=== PATIENT | male | born 1935 | race Caucasian/White ===

== ENCOUNTER 2019-06-24 19:20 | Inpatient (IN) | payer OTHER ==
[2019-06-24] MEDS ORDERED: SODIUM CHLORIDE 1,000 ML IV ONE (19:50)
--- NOTE | 2019-06-24 19:55 | PDOC ---
Documentation entered by Gaby Harden SCRIBE, acting as scribe for Margi Packer MD. Margi Packer MD: This documentation has been prepared by the Dereck woodard Aiswarya, SCRIBE, under my direction and personally reviewed by me in its entirety. I confirm that the documentation accurately reflects all work, treatment, procedures, and medical decision making performed by me. History of Present Illness - General Chief Complaint: Lightheaded Stated Complaint: DIZZY/SOB Time Seen by Provider: 06/24/19 19:23 History Source: Patient Exam Limitations: No Limitations - History of Present Illness Initial Comments: 06/24/19 19:53 Assessment and plan: This is an 83-year-old male brought in by EMS for evaluation of 3 days of shortness of breath and difficulty breathing. Patient denies any history of similar symptoms in the past. Patient denies any chest pain nausea vomiting or diarrhea. Patient denies any palpitations however he is noted to be tachycardic to approximately 140 Work-up initiated including CBC, comp, EKG, chest x-ray, BNP, lactic acid EKG shows sinus tachycardia at a rate of 137. There is an old inferior wall SD otherwise no acute ST-T wave changes. Chest x-ray shows no acute pathology. 06/24/19 20:00 The patient is a 83 year old male, with no significant PMH, who presents to the emergency department with 3 days of SOB. The patient endorses associated symptoms of lightheadedness,difficulty breathing and fatigue. Patient notice symptoms after winning a contest 3 days ago.The patient denies having similar symptoms in the past. The patient denies chest pain, shortness of breath, headache and dizziness.Denies fever, chills, nausea, vomit, diarrhea and constipation. PAST MEDICAL HISTORY: no significant history PAST SURGICAL HISTORY: no significant history FAMILY HISTORY: no pertinent history SOCIAL HISTORY: Pt lives with family and is employed. MEDICATIONS: reviewed ALLERGIES: As per nursing notes Adult ROS General: No fevers or chills, no weakness, no weight loss HEENT: No change in vision. No sore throat,. No ear pain CardioVascular:+sob. No chest pain. Respiratory:No cough, or wheezing. Musculoskeletal: No joint or muscle pain or swelling Neurologic:+ lightheadedness. No headache, vertigo or loss of consciousness Psychiatric: nor depression Skin: No rashes or easy bruising Endocrine: no increased thirst or abnormal weight change Allergic: no skin or latex allergy All other systems reviewed and normal Adult Exam: General: Well-nourished well-developed individual, no acute distress HEENT: Throat: +dry mucous memebrane. Normal, tonsils normal, no erythema or exudate Neck: Supple, no meningeal signs, no lymphadenopathy Eyes::Pupils equal reactive and round, extraocular motion intact Chest: Nontender to palpation Cardiac:+tachycardic S1-S2 normal, no murmurs rubs or gallops Respiratory: +tachypnea. Lungs clear to auscultation bilateral Abdomen: Soft, nondistended, normal bowel sounds, nontender to palpation diffusely Extremities: Warm, dry, no cyanosis, clubbing, or edema Skin: No rashes Neuro: Alert and oriented x3, nonfocal exam, grossly intact, normal gait Psych: Normal mood and affect Past History - Past Medical History Allergies/Adverse Reactions: Allergies Allergy/AdvReac Type Severity Reaction Status Date / Time No Known Allergies Allergy Verified 06/24/19 19:30 Home Medications: Ambulatory Orders NK [No Known Home Medication] 06/24/19 COPD: No Other medical history: DENIES - Psycho Social/Smoking Cessation Hx Smoking History: Never smoked Have you smoked in the past 12 months: No Information on smoking cessation initiated: No Hx Alcohol Use: Yes (3 OUNCES OF GIN DAILY) Drug/Substance Use Hx: No *Physical Exam - Vital Signs Last Vital Signs Temp Pulse Resp BP Pulse Ox 138 H 36 H 147/87 96 06/24/19 19:31 06/24/19 19:31 06/24/19 19:31 06/24/19 19:31 ED Treatment Course - LABORATORY CBC & Chemistry Diagram: 06/24/19 19:40 06/24/19 19:40 - RADIOLOGY Radiology Studies Ordered: Category Date Time Status CHEST X-RAY PORTABLE* [RAD] Stat Radiology 06/24/19 19:23 Taken Medical Decision Making - Critical Care Time Total Critical Care Time (minutes): 30 Critical Care Statement: The care of this patient involved high complexity decision making to prevent further life threatening deterioration of the patient 's condition and/or to evaluate & treat vital organ system(s) failure or risk of failure. Discharge - Discharge Information Problems reviewed: Yes Clinical Impression/Diagnosis: Tachycardia, Tachypnea on examination, Elevated troponin level Condition: Stable - Admission Yes - Follow up/Referral - Patient Discharge Instructions - Post Discharge Activity
[2019-06-24 19:57] LABS: BASO % 0.6 % (0-2.0); EOS % 0.5 % (0-4.5); HEMATOCRIT 46.6 % (35.4-49); HEMOGLOBIN 15.5 GM/dl (11.7-16.9); LYMPH % 18.8 % (8-40); MCHC 33.3 g/dl (32.0-35.9); MEAN CELL VOLUME 90.2 fl (80-96); MEAN PLT VOLUME 9.8 fl (7.5-11.1); MONO % 6.1 % (3.8-10.2); PLATELET COUNT 158 K/MM3 (134-434); RBC 5.17 M/mm3 (4.00-5.60); RDW 13.3 % (11.9-15.9); WHITE BLOOD COUNT 8.2 K/mm3 (4.0-10.8)
[2019-06-24 20:06] LABS: ALBUMIN 3.8 g/dl (3.4-5.0); BILIRUBIN,TOTAL 1.3 mg/dl (0.2-1); CALCIUM 9.1 mg/dl (8.5-10); CREATININE 1.4 mg/dl (0.55-1.3); POTASSIUM 4.4 mmol/L (3.5-5.1); TOT PROT 7.5 g/dl (6.4-8.2)
[2019-06-24 22:25] LABS: URIC ACID CRYSTALS 1+ /hpf (NONE SEEN)
[2019-06-24] MEDS ORDERED: HEPARIN NA (PORCINE) 5,000 UNITS/ML 1ML VIAL IVPUSH ONE (22:31)
[2019-06-24] MEDS ORDERED: HEPARIN NA (PORCINE) 5,000 UNITS/ML 1ML VIAL ONE (22:37)
[2019-06-24] MEDS ORDERED: HEPARIN INFUSION - 25,000 UNITS/500 ML INFUS.BAG IVPB ONE (22:37)
[2019-06-24] MEDS ORDERED: HEPARIN NA (PORCINE) 5,000 UNITS/ML 1ML VIAL IVPUSH PRN ×2 (22:41)
[2019-06-24] MEDS: HEPARIN - 25,000 UNIT in SODIUM CHLORIDE 495 ML IV SCH (22:51)
[2019-06-24 23:37] LABS: INR 1.16 (0.82-1.09)
--- NOTE | 2019-06-25 02:17 | CONSULT ---
Consultation: REQUESTING PROVIDER: Dr. Aguilar CONSULT REQUEST: We have been asked to medically evaluate this patient for ICU admission HISTORY OF PRESENT ILLNESS: Patient is an 83 year old male with no significant documented medical history, presents with complaint of shortness of breath. Symptoms ongoing for three days , noted initially after attempting to walk up a hill. Patient endorses he was able to walk same path before without difficulty. Denies any recent travel, or prolonged period of immobilization. Denies any cardiac history. Has never taken any anticoagulants. Patient states last had appointment with primary care physician less than one year ago, and all bloodwork was reportedly normal. Patient admits colonoscopy approx 5 years ago, with reportedly normal result. Denies prior endoscopy. States he takes no home medications. CTA chest done in [place] reveals extensive acute pulmonary embolism withing left and right pulmonary arteries, straddling pulmonary artery bifurcation, with apparent right heart strain. Further acute emboli at upper and lower lobar arteries bilaterally. Upon my encounter, patient is awake, alert , communicative in no apparent distress. Speaks full sentences, denies chest pain, shortness of breath. Denies prior clotting history. PMH: Sciatica PSH: cataract surgery (one year ago) Family history: denies significant cardiac, or oncologic family history Social history: Denies smoking cigarettes. Admits drinking approx 3 oz of gin daily. Denies illicit drug use. He paints watercolors, and is musician (plays guitar). REVIEW OF SYSTEMS: CONSTITUTIONAL: Absent: fever, chills, diaphoresis, generalized weakness, malaise, loss of appetite, weight change HEENT: Absent: rhinorrhea, nasal congestion, throat pain, throat swelling, difficulty swallowing, mouth swelling, ear pain, eye pain, visual changes CARDIOVASCULAR: Absent: chest pain, syncope, palpitations, irregular heart rate, lightheadedness , peripheral edema RESPIRATORY: Admits: shortness of breath, dyspnea with exertion. Absent: cough, orthopnea, wheezing, stridor, hemoptysis GASTROINTESTINAL: Absent: abdominal pain, abdominal distension, nausea, vomiting, diarrhea, constipation, melena, hematochezia GENITOURINARY: Absent: dysuria, frequency, urgency, hesitancy, hematuria, flank pain, genital pain MUSCULOSKELETAL: Absent: myalgia, arthralgia, joint swelling, back pain, neck pain SKIN: Absent: rash, itching, pallor HEMATOLOGIC/IMMUNOLOGIC: Absent: easy bleeding, easy bruising, lymphadenopathy, frequent infections ENDOCRINE: Absent: unexplained weight gain, unexplained weight loss, heat intolerance, cold intolerance NEUROLOGIC: Absent: headache, focal weakness or paresthesias, dizziness, unsteady gait, seizure, mental status changes, bladder or bowel incontinence PSYCHIATRIC: Absent: anxiety, depression, suicidal or homicidal ideation, hallucinations. PHYSICAL EXAMINATION Vital Signs - 24 hr 06/24/19 06/24/19 06/24/19 19:31 19:46 19:54 Temperature 99.8 F H Pulse Rate 138 H 136 H Pulse Rate [ Right] Respiratory 36 H Rate Blood Pressure 147/87 Blood Pressure [Right] O2 Sat by Pulse 96 97 Oximetry (%) 06/24/19 06/24/19 06/25/19 20:02 23:00 01:29 Temperature 97.3 F L Pulse Rate 125 H Pulse Rate [ 139 H 133 H Right] Respiratory 24 H 24 H 19 Rate Blood Pressure 165/116 H Blood Pressure 118/93 129/93 [Right] O2 Sat by Pulse 96 96 98 Oximetry (%) GENERAL: Awake, alert, and fully oriented, in no acute distress. HEAD: Normal with no signs of trauma. EYES: Pupils equal, round and reactive to light, extraocular movements intact, sclera anicteric, conjunctiva clear. No lid lag. EARS, NOSE, THROAT: Oropharynx clear without exudates. Moist mucous membranes. NECK: Normal range of motion, supple without lymphadenopathy. LUNGS: Breath sounds equal, clear to auscultation bilaterally. No wheezes, and no crackles. No accessory muscle use. HEART: Regular rate and rhythm, normal S1 and S2 without murmur, rub or gallop. ABDOMEN: Soft, nontender, not distended, normoactive bowel sounds, no guarding, no rebound, no masses. No hepatomegaly or splenomegaly. MUSCULOSKELETAL: Normal range of motion at all joints. No bony deformities or tenderness. UPPER EXTREMITIES: 2+ pulses, warm, well-perfused. No cyanosis. No clubbing. LOWER EXTREMITIES: 2+ pulses, warm, well-perfused. No calf tenderness. No peripheral edema. Negative calf tenderness. Negative Titus sign. NEUROLOGICAL: Cranial nerves II-XII intact. Normal speech. Normal gait. PSYCHIATRIC: Cooperative. Good eye contact. Appropriate mood and affect. SKIN: Warm, dry, normal turgor, no rashes or lesions noted. Laboratory Results - last 24 hr 06/24/19 06/24/19 06/24/19 19:40 19:40 19:40 WBC 8.2 RBC 5.17 Hgb 15.5 Hct 46.6 MCV 90.2 MCH 30.0 MCHC 33.3 RDW 13.3 Plt Count 158 MPV 9.8 Absolute Neuts (auto) 6.2 Neutrophils % 74.0 Lymphocytes % 18.8 Monocytes % 6.1 Eosinophils % 0.5 Basophils % 0.6 PT with INR INR Sodium 138 Potassium 4.4 Chloride 104 Carbon Dioxide 19 L Anion Gap 15 BUN 29.0 H Creatinine 1.4 H Est GFR (CKD-EPI)AfAm 54.22 Est GFR (CKD-EPI)NonAf 46.79 Random Glucose 237 H Lactic Acid Calcium 9.1 Total Bilirubin 1.3 H AST 32 ALT 25 Alkaline Phosphatase 77 Creatine Kinase 55 Troponin I 0.14 H B-Natriuretic Peptide Total Protein 7.5 Albumin 3.8 Urine Color Urine Appearance Urine pH Urine Protein Urine Glucose (UA) Urine Ketones Urine Blood Urine Nitrite Urine Bilirubin Urine Urobilinogen Ur Leukocyte Esterase Urine RBC Urine WBC Uric Acid Crystals 06/24/19 06/24/19 06/24/19 20:00 20:00 21:05 WBC RBC Hgb Hct MCV MCH MCHC RDW Plt Count MPV Absolute Neuts (auto) Neutrophils % Lymphocytes % Monocytes % Eosinophils % Basophils % PT with INR INR Sodium Potassium Chloride Carbon Dioxide Anion Gap BUN Creatinine Est GFR (CKD-EPI)AfAm Est GFR (CKD-EPI)NonAf Random Glucose Lactic Acid 3.9 H* Calcium Total Bilirubin AST ALT Alkaline Phosphatase Creatine Kinase Troponin I B-Natriuretic Peptide 46966.4 H Total Protein Albumin Urine Color Yellow Urine Appearance Clear Urine pH 5.5 Urine Protein 2+ H Urine Glucose (UA) Negative Urine Ketones Trace Urine Blood Negative Urine Nitrite Negative Urine Bilirubin 1+ H Urine Urobilinogen 0.2 Ur Leukocyte Esterase Negative Urine RBC 0-2 Urine WBC 0-2 Uric Acid Crystals 1+ 06/24/19 06/25/19 06/25/19 23:15 01:15 01:15 WBC RBC Hgb Hct MCV MCH MCHC RDW Plt Count MPV Absolute Neuts (auto) Neutrophils % Lymphocytes % Monocytes % Eosinophils % Basophils % PT with INR 13.0 INR 1.16 Sodium Potassium Chloride Carbon Dioxide Anion Gap BUN Creatinine Est GFR (CKD-EPI)AfAm Est GFR (CKD-EPI)NonAf Random Glucose Lactic Acid 2.1 H Calcium Total Bilirubin AST ALT Alkaline Phosphatase Creatine Kinase 64 Troponin I 0.40 H B-Natriuretic Peptide Total Protein Albumin Urine Color Urine Appearance Urine pH Urine Protein Urine Glucose (UA) Urine Ketones Urine Blood Urine Nitrite Urine Bilirubin Urine Urobilinogen Ur Leukocyte Esterase Urine RBC Urine WBC Uric Acid Crystals Active Medications Generic Name Dose Route Start Last Admin Trade Name Freq PRN Reason Stop Dose Admin Heparin Sodium (Porcine) 1,000 unit 06/24/19 22:41 Heparin - IVPUSH PRN PRN Heparin Heparin Sodium (Porcine) 5,000 unit 06/24/19 22:41 Heparin - IVPUSH PRN PRN Heparin Heparin Sodium (Porcine) 25, 500 mls @ 20 mls/hr 06/24/19 22:45 06/24/19 22: 51 000 unit/ Sodium Chloride IV 1,000 unit/hr TITR CHEN 20 mls/hr Administration Protocol 1,000 UNIT/HR ASSESSMENT/PLAN: Patient is an 83 year old male with no significant documented medical history admitted to ICU for acute pulmonary embolism. Neurologic -Patient is awake, alert, fully oriented. In no acute distress. -Monitor for signs of mental status change. -Patient endorses daily alcohol use approx 3oz of Gin. Currently CIWA of 0. Monitor for any signs of withdrawal, initiate Librium protocol as indicated. Fall precautions. Pulmonary Submassive pulmonary emboli -CTA chest reveals extensive acute pulmonary embolism withing left and right pulmonary arteries, straddling pulmonary artery bifurcation, with apparent right heart strain. Further acute emboli at upper and lower lobar arteries bilaterally. However, patient remains hemodynamically stable. -Heparin drip was initiated at [place] [facility]. Continue Heparin drip, monitor PTT -Lactic acidosis 3.9 -> 2.1. Will trend. -Follow duplex bilateral lower extremities to evaluate for DVT -Consider IR consult for thrombectomy Cardiac -EKG reveals sinus tachycardia at 137BPM -Trop 0.14 -> 0.40. Demand likely secondary to right heart strain due to pulmonary embolism. Follow troponins. Patient is already on Heparin drip. -Cardiology was consulted by ED (Dr. Daniels). Appreciate recommendations. -Follow Cardiac ECHO -Cardiac monitoring Gastrointestinal -NPO for now, pending any IR evaluation. -CT scan noted numerous liver lesions, concern for malignancy as possible provocative etiology of pulmonary embolism. Consider hematology/ oncology consult. Endocrine Hyperglycemia, ?DM -Follow HbA1c -Insulin sliding scale Q6 hours -Fignerstick blood glucose Q6 hours FEN -No IV fluids indicated -Follow BMP, replete as indicated -NPO Prophylaxis -Patient is on Heparin drip for pulmonary embolism. Disposition -We will continue to follow the patient. Thank you for this consultative opportunity. Visit type - Emergency Visit Emergency Visit: Yes ED Registration Date: 06/25/19 Care time: The patient presented to the Emergency Department on the above date and was hospitalized for further evaluation of their emergent condition. - New Patient This patient is new to me today: Yes Date on this admission: 06/25/19 - Critical Care Critical Care patient: Yes Total Critical Care Time (in minutes): 36 Critical Care Statement: The care of this patient involved high complexity decision making to prevent further life threatening deterioration of the patient 's condition and/or to evaluate & treat vital organ system(s) failure or risk of failure. ATTENDING PHYSICIAN STATEMENT I saw and evaluated the patient. I reviewed the resident's note and discussed the case with the resident. I agree with the resident's findings and plan as documented. SUBJECTIVE: OBJECTIVE: ASSESSMENT AND PLAN:
--- NOTE | 2019-06-25 02:58 | HP ---
Admitting History and Physical - Admission Chief Complaint: Worsening SOB History of Present Illness: This is a 83 y/o man with no PMHx. Who presents to the [place] ED with worsening SOB, dizziness x 4-5 days. Patient reports increased SOB worse on exertion, while walking up hills and stairs. Patient reports having difficulty catching his breath with regular activity. Patient denies CP, palpitations, fever, chills, AP, N/V/D, constipation, melena, hematochezia, hematuria, dysuria. Patient denies recent air travel, or long car rides. ED course is noted for: (1) CTA showed- extensive acute pulmonary embolism withing left and right pulmonary arteries, straddling pulmonary artery bifurcation, with apparent right heart strain. Further acute emboli at upper and lower lobar arteries bilaterally. (2) EKG- Sinus Tachycardia, Inferior Infarct, age undetermined (3) Troponin 0.14 (4) P- 136~139, R- 24~36, Spo2 92% RA History Source: Patient Limitations to Obtaining History: No Limitations - Past Medical History Cardiovascular: Yes: Murmur - Past Surgical History Past Surgical History: Yes: Cataract Removal (B/L) - Smoking History Smoking history: Never smoked Have you smoked in the past 12 months: No - Alcohol/Substance Use Hx Alcohol Use: Yes (3 OUNCES OF GIN DAILY) History of Substance Use: reports: None - Social History Usual Living Arrangement: Yes: With Spouse Do you think of yourself as: Straight/Heterosexual ADL: Independent Occupation: Musician History of Recent Travel: No Home Medications - Allergies Allergies/Adverse Reactions: Allergies Allergy/AdvReac Type Severity Reaction Status Date / Time No Known Allergies Allergy Verified 06/24/19 19:30 - Home Medications Home Medications: Ambulatory Orders NK [No Known Home Medication] 06/24/19 Family Medical History Family Hx Cardiac Disorders: Mother (Stroke 80's) Family Hx Respiratory Disorders: Father ( in 80s) Other Family History: Sister- Alive and Healthy Review of Systems - Review of Systems Constitutional: reports: No Symptoms Eyes: reports: No Symptoms HENT: reports: No Symptoms Neck: reports: No Symptoms Cardiovascular: reports: Shortness of Breath Respiratory: reports: Orthopnea, SOB, SOB on Exertion Gastrointestinal: reports: No Symptoms Genitourinary: reports: No Symptoms Breasts: reports: No Symptoms Reported Musculoskeletal: reports: No Symptoms Integumentary: reports: No Symptoms Neurological: reports: Dizziness Endocrine: reports: No Symptoms Hematology/Lymphatic: reports: No Symptoms Psychiatric: reports: No Symptoms Pain Intensity: 0 Physical Examination Vital Signs: Vital Signs Temperature 97.3 F L 06/25/19 01:29 Pulse Rate 117 H 06/25/19 02:28 Respiratory Rate 20 06/25/19 02:28 Blood Pressure 128/91 06/25/19 02:28 O2 Sat by Pulse Oximetry (%) 98 06/25/19 01:29 Constitutional: Yes: Well Nourished, No Distress, Calm Eyes: Yes: WNL, Conjunctiva Clear, EOM Intact, PERRL HENT: Yes: WNL, Atraumatic, Normocephalic Neck: Yes: WNL, Supple, Trachea Midline Cardiovascular: Yes: Tachycardia, S1, S2 Respiratory: Yes: Diminished, On Nasal O2, SOB, SOB on Exertion Gastrointestinal: Yes: Normal Bowel Sounds, Soft, Abdomen, Obese Renal/: Yes: WNL Breast(s): Yes: WNL Musculoskeletal: Yes: WNL Extremities: Yes: WNL Edema: No Peripheral Pulses WNL: Yes Neurological: Yes: WNL, Alert, Oriented, Cran Nerves II-XII Intact ...Motor Strength: WNL Psychiatric: Yes: WNL, Alert, Oriented Labs: CBC, BMP 06/24/19 19:40 06/24/19 19:40 Laboratory Results - last 24 hr 06/24/19 06/24/19 06/24/19 19:40 19:40 19:40 WBC 8.2 RBC 5.17 Hgb 15.5 Hct 46.6 MCV 90.2 MCH 30.0 MCHC 33.3 RDW 13.3 Plt Count 158 MPV 9.8 Absolute Neuts (auto) 6.2 Neutrophils % 74.0 Lymphocytes % 18.8 Monocytes % 6.1 Eosinophils % 0.5 Basophils % 0.6 PT with INR INR Sodium 138 Potassium 4.4 Chloride 104 Carbon Dioxide 19 L Anion Gap 15 BUN 29.0 H Creatinine 1.4 H Est GFR (CKD-EPI)AfAm 54.22 Est GFR (CKD-EPI)NonAf 46.79 POC Glucometer Random Glucose 237 H Hemoglobin A1c % Lactic Acid Calcium 9.1 Total Bilirubin 1.3 H AST 32 ALT 25 Alkaline Phosphatase 77 Creatine Kinase 55 Troponin I 0.14 H B-Natriuretic Peptide Total Protein 7.5 Albumin 3.8 Urine Color Urine Appearance Urine pH Urine Protein Urine Glucose (UA) Urine Ketones Urine Blood Urine Nitrite Urine Bilirubin Urine Urobilinogen Ur Leukocyte Esterase Urine RBC Urine WBC Uric Acid Crystals 06/24/19 06/24/19 06/24/19 20:00 20:00 21:05 WBC RBC Hgb Hct MCV MCH MCHC RDW Plt Count MPV Absolute Neuts (auto) Neutrophils % Lymphocytes % Monocytes % Eosinophils % Basophils % PT with INR INR Sodium Potassium Chloride Carbon Dioxide Anion Gap BUN Creatinine Est GFR (CKD-EPI)AfAm Est GFR (CKD-EPI)NonAf POC Glucometer Random Glucose Hemoglobin A1c % Lactic Acid 3.9 H* Calcium Total Bilirubin AST ALT Alkaline Phosphatase Creatine Kinase Troponin I B-Natriuretic Peptide 05919.4 H Total Protein Albumin Urine Color Yellow Urine Appearance Clear Urine pH 5.5 Urine Protein 2+ H Urine Glucose (UA) Negative Urine Ketones Trace Urine Blood Negative Urine Nitrite Negative Urine Bilirubin 1+ H Urine Urobilinogen 0.2 Ur Leukocyte Esterase Negative Urine RBC 0-2 Urine WBC 0-2 Uric Acid Crystals 1+ 06/24/19 06/25/19 06/25/19 23:15 01:15 01:15 WBC RBC Hgb Hct MCV MCH MCHC RDW Plt Count MPV Absolute Neuts (auto) Neutrophils % Lymphocytes % Monocytes % Eosinophils % Basophils % PT with INR 13.0 INR 1.16 Sodium Potassium Chloride Carbon Dioxide Anion Gap BUN Creatinine Est GFR (CKD-EPI)AfAm Est GFR (CKD-EPI)NonAf POC Glucometer Random Glucose Hemoglobin A1c % Lactic Acid 2.1 H Calcium Total Bilirubin AST ALT Alkaline Phosphatase Creatine Kinase 64 Troponin I 0.40 H B-Natriuretic Peptide Total Protein Albumin Urine Color Urine Appearance Urine pH Urine Protein Urine Glucose (UA) Urine Ketones Urine Blood Urine Nitrite Urine Bilirubin Urine Urobilinogen Ur Leukocyte Esterase Urine RBC Urine WBC Uric Acid Crystals Current Medications Generic Name Dose Route Start Last Admin Trade Name Freq PRN Reason Stop Dose Admin Chlorhexidine Gluconate 1 applic 06/25/19 22:00 Hibiclens For Decolonization - TP HS CHEN Heparin Sodium (Porcine) 1,000 unit 06/24/19 22:41 Heparin - IVPUSH PRN PRN Heparin Heparin Sodium (Porcine) 5,000 unit 06/24/19 22:41 Heparin - IVPUSH PRN PRN Heparin Heparin Sodium (Porcine) 25, 500 mls @ 20 mls/hr 06/24/19 22:45 06/24/19 22: 51 000 unit/ Sodium Chloride IV 1,000 unit/hr TITR CHEN 20 mls/hr Administration Protocol 1,000 UNIT/HR Insulin Aspart 1 vial 06/25/19 07:00 06/25/19 06:24 Novolog Vial Sliding Scale - SQ Not Given TIDAC [facility] Protocol Mupirocin 1 applic 06/25/19 10:00 Bactroban Ointment (For Decolonization) - NS 06/30/19 09:59 BID [facility] Imaging - Results Chest X-ray: Image Reviewed Cat Scan: Image Reviewed EKG: Image Reviewed Problem List - Problems (1) NSTEMI (non-ST elevated myocardial infarction) Assessment/Plan: Admit ICU ALFREDO 2 EKG- Sinus Tachycardia, Inferior infarct age undetermined Troponin 0.14 Cardiology consulted by ED attending Chest Xray- reviewed Echo in am Heparin Protocol initiated in ED On exam- patient reports SOB, denies CP and palpations at present Asa Serial Enzymes Code(s): I21.4 - NON-ST ELEVATION (NSTEMI) MYOCARDIAL INFARCTION (2) Pulmonary embolism Assessment/Plan: Wells Score 4.5 PERC Rule 3 Chest Xray image reviewed CTA report- extensive acute pulmonary embolism withing left and right pulmonary arteries, straddling pulmonary artery bifurcation, with apparent right heart strain. Further acute emboli at upper and lower lobar arteries bilaterally. Heparin Drip initiated with bolus by ED attending Continue ICU monitoring Appreciate Pulm Consult appreciate Interventional Radiology consult- possible Thrombectomy Monitor CBC, BMP O2 Code(s): I26.99 - OTHER PULMONARY EMBOLISM WITHOUT ACUTE COR PULMONALE (3) Elevated troponin level Assessment/Plan: Likely secondary to demand ischemia from Right Heart Strain, PE Serial Enzymes Code(s): R79.89 - OTHER SPECIFIED ABNORMAL FINDINGS OF BLOOD CHEMISTRY (4) Tachycardia Assessment/Plan: EKG- ST, Inferior Infarct age undetermined Likely due to PE Code(s): R00.0 - TACHYCARDIA, UNSPECIFIED (5) Lactic acidosis Assessment/Plan: Likely secondary to PE Code(s): E87.2 - ACIDOSIS Assessment/Plan This is a 83 y/o man with no PMHx. Admitted to ICU for NSTEMI, Multiple PEs for further evaluation of their emergent condition. Plan: See Problem List FEN Replete lytes NPO DVT ppx OOB Continue Heparin Protocol ( NSTEMI, PE) Code Status: Full Code Dispo: Requires Inpatient Care Visit type - Emergency Visit Emergency Visit: Yes ED Registration Date: 06/24/19 Care time: The patient presented to the Emergency Department on the above date and was hospitalized for further evaluation of their emergent condition. - New Patient This patient is new to me today: Yes Date on this admission: 06/25/19 - Critical Care Critical Care patient: Yes Total Critical Care Time (in minutes): 35 Critical Care Statement: The care of this patient involved high complexity decision making to prevent further life threatening deterioration of the patient 's condition and/or to evaluate & treat vital organ system(s) failure or risk of failure.
[2019-06-25] MEDS ORDERED: INSULIN SLIDING SCALE (NOVOLOG) 1 VIAL SQ SCH (07:00)
[2019-06-25 07:50] LABS: HEMATOCRIT 42.8 % (35.4-49); HEMOGLOBIN 14.4 GM/dL (11.7-16.9); MCH 29.6 pg (25.7-33.7); MCHC 33.7 g/dl (32.0-35.9); MEAN CELL VOLUME 87.9 fl (80-96); MEAN PLT VOLUME 9.7 fl (7.5-11.1); PLATELET COUNT 121 K/MM3 (134-434); RBC 4.87 M/mm3 (4.00-5.60); RDW 14.2 % (11.9-15.9); WHITE BLOOD COUNT 5.9 K/mm3 (4.0-10.0)
[2019-06-25 08:00] LABS: INR 1.18 (0.83-1.09)
[2019-06-25 08:26] LABS: ALBUMIN 3.3 g/dl (3.4-5.0); BILIRUBIN,TOTAL 0.8 mg/dL (0.2-1); CALCIUM 8.9 mg/dL (8.5-10.1); CREATININE 1.2 mg/dL (0.55-1.3); MAGNESIUM 2.3 mg/dL (1.8-2.4); PHOSPHOROUS 3.8 mg/dL (2.5-4.9); POTASSIUM 4.2 mmol/L (3.5-5.1); TOT PROT 6.9 g/dl (6.4-8.2)
--- NOTE | 2019-06-25 09:18 | ECHO ---
Name: SANFORD OWENS Exam:Adult Echocardiogram Study Date: 06/25/2019 07:50 AM Age: 83 yrs Reason For Study: pulmonary embolism Height: 65 in Weight: 181 lb BSA: 1.9 m2 MMode/2D Measurements & Calculations IVSd: 1.2 cm Ao root diam: 2.7 cm LVIDd: 2.5 cm LA dimension: 3.0 cm LVIDs: 1.5 cm LVPWd: 0.95 cm EDV(Teich): 21.4 ml LVOT diam: 2.0 cm ESV(Teich): 5.7 ml Doppler Measurements & Calculations MV E max pepito: 111.0 cm/sec Ao V2 max: 104.5 cm/sec MV A max pepito: 71.3 cm/sec Ao max P.4 mmHg MV E/A: 1.6 MV dec time: 0.07 sec JACOB(V,D): 2.3 cm2 LV V1 max P.1 mmHg TR max pepito: 368.9 cm/sec LV V1 max: 73.2 cm/sec TR max P.5 mmHg PA V2 max: 95.0 cm/sec Med Peak E' Pepito: 10.7 cm/sec PA max P.6 mmHg Med E/e': 10.4 Lat Peak E' Pepito: 4.1 cm/sec Lat E/e': 26.9 Procedure A complete two-dimensional transthoracic echocardiogram was performed (2D, M-mode, Doppler and color flow Doppler). Left Ventricle The left ventricle is normal in size. There is borderline concentric left ventricular hypertrophy. Ej ection Fraction = 65%. The left ventricular wall motion is normal. Right Ventricle The right ventricle is moderate to severely dilated. The right ventricular systolic function is moder ate to severely reduced. Atria Normal left and right atrial size and function. Mitral Valve The mitral valve is normal in structure and function. There is trace mitral regurgitation. Tricuspid Valve The tricuspid valve is normal in structure and function. There is mild tricuspid regurgitation. Right ventricular systolic pressure is elevated at 65 mmhg. There is severe pulmonary hypertension. Aortic Valve There is mild aortic valve thickening. Pulmonic Valve The pulmonic valve is not well seen, but is grossly normal. Great Vessels The aortic root is normal size. Pericardium/Pleura There is no pericardial effusion. There is no pleural effusion. Interpretation Summary There is borderline concentric left ventricular hypertrophy. Ejection Fraction = 65%. The left ventricular wall motion is normal. The right ventricle is moderate to severely dilated. The right ventricular systolic function is moderate to severely reduced. There is trace mitral regurgitation. There is mild tricuspid regurgitation. Right ventricular systolic pressure is elevated at 65 mmhg. There is severe pulmonary hypertension. MD Edilberto Short 06/25/2019 09:18 AM
[2019-06-25] MEDS: MUPIROCIN 2% TOPICAL OINTMENT FOR DECOLONIZATION NS SCH ×2 (10:23→22:00)
--- NOTE | 2019-06-25 10:58 | PN ---
Physical Exam: SUBJECTIVE: Patient seen and examined. Complaining of mild SOB w normal O2sats. Denies chest/leg pain. OBJECTIVE: Vital Signs Period Temp Pulse Resp BP Sys/Koenig Pulse Ox Last 24 Hr 97.3 F-99.8 F 112-139 19-36 118-165/87-116 96-98 GENERAL: Awake, alert, and fully oriented, in no acute distress. LUNGS: Breath sounds equal, clear to auscultation bilaterally. No wheezes, and no crackles. No accessory muscle use. HEART: Tachycardic. Regular rhythm, normal S1 and S2 without murmur, rub or gallop. ABDOMEN: Soft, nontender, not distended, normoactive bowel sounds, no guarding, no rebound, no masses. No hepatomegaly or splenomegaly. EXTREMITIES: 2+ pulses, warm, well-perfused. NEUROLOGICAL: Normal speech. AOx3 Laboratory Results - last 24 hr 06/24/19 06/24/19 06/24/19 19:40 19:40 19:40 WBC 8.2 RBC 5.17 Hgb 15.5 Hct 46.6 MCV 90.2 MCH 30.0 MCHC 33.3 RDW 13.3 Plt Count 158 MPV 9.8 Absolute Neuts (auto) 6.2 Neutrophils % 74.0 Lymphocytes % 18.8 Monocytes % 6.1 Eosinophils % 0.5 Basophils % 0.6 PT with INR INR PTT (Actin FS) Sodium 138 Potassium 4.4 Chloride 104 Carbon Dioxide 19 L Anion Gap 15 BUN 29.0 H Creatinine 1.4 H Est GFR (CKD-EPI)AfAm 54.22 Est GFR (CKD-EPI)NonAf 46.79 POC Glucometer Random Glucose 237 H Hemoglobin A1c % Lactic Acid Calcium 9.1 Phosphorus Magnesium Total Bilirubin 1.3 H AST 32 ALT 25 Alkaline Phosphatase 77 Creatine Kinase 55 Troponin I 0.14 H B-Natriuretic Peptide Total Protein 7.5 Albumin 3.8 Urine Color Urine Appearance Urine pH Urine Protein Urine Glucose (UA) Urine Ketones Urine Blood Urine Nitrite Urine Bilirubin Urine Urobilinogen Ur Leukocyte Esterase Urine RBC Urine WBC Uric Acid Crystals 06/24/19 06/24/19 06/24/19 20:00 20:00 21:05 WBC RBC Hgb Hct MCV MCH MCHC RDW Plt Count MPV Absolute Neuts (auto) Neutrophils % Lymphocytes % Monocytes % Eosinophils % Basophils % PT with INR INR PTT (Actin FS) Sodium Potassium Chloride Carbon Dioxide Anion Gap BUN Creatinine Est GFR (CKD-EPI)AfAm Est GFR (CKD-EPI)NonAf POC Glucometer Random Glucose Hemoglobin A1c % Lactic Acid 3.9 H* Calcium Phosphorus Magnesium Total Bilirubin AST ALT Alkaline Phosphatase Creatine Kinase Troponin I B-Natriuretic Peptide 37752.4 H Total Protein Albumin Urine Color Yellow Urine Appearance Clear Urine pH 5.5 Urine Protein 2+ H Urine Glucose (UA) Negative Urine Ketones Trace Urine Blood Negative Urine Nitrite Negative Urine Bilirubin 1+ H Urine Urobilinogen 0.2 Ur Leukocyte Esterase Negative Urine RBC 0-2 Urine WBC 0-2 Uric Acid Crystals 1+ 06/24/19 06/25/19 06/25/19 23:15 01:15 01:15 WBC RBC Hgb Hct MCV MCH MCHC RDW Plt Count MPV Absolute Neuts (auto) Neutrophils % Lymphocytes % Monocytes % Eosinophils % Basophils % PT with INR 13.0 INR 1.16 PTT (Actin FS) Sodium Potassium Chloride Carbon Dioxide Anion Gap BUN Creatinine Est GFR (CKD-EPI)AfAm Est GFR (CKD-EPI)NonAf POC Glucometer Random Glucose Hemoglobin A1c % Lactic Acid 2.1 H Calcium Phosphorus Magnesium Total Bilirubin AST ALT Alkaline Phosphatase Creatine Kinase 64 Troponin I 0.40 H B-Natriuretic Peptide Total Protein Albumin Urine Color Urine Appearance Urine pH Urine Protein Urine Glucose (UA) Urine Ketones Urine Blood Urine Nitrite Urine Bilirubin Urine Urobilinogen Ur Leukocyte Esterase Urine RBC Urine WBC Uric Acid Crystals 06/25/19 06/25/19 06/25/19 06:00 06:05 06:05 WBC 5.9 RBC 4.87 Hgb 14.4 Hct 42.8 MCV 87.9 MCH 29.6 MCHC 33.7 RDW 14.2 Plt Count 121 L MPV 9.7 Absolute Neuts (auto) Neutrophils % Lymphocytes % Monocytes % Eosinophils % Basophils % PT with INR INR PTT (Actin FS) Sodium 142 Potassium 4.2 Chloride 110 H Carbon Dioxide 20 L Anion Gap 11 BUN 27.0 H Creatinine 1.2 Est GFR (CKD-EPI)AfAm 65.33 Est GFR (CKD-EPI)NonAf 56.37 POC Glucometer Random Glucose 109 H Hemoglobin A1c % Lactic Acid 1.7 Calcium 8.9 Phosphorus 3.8 Magnesium 2.3 Total Bilirubin 0.8 AST 20 ALT 28 Alkaline Phosphatase 80 Creatine Kinase 66 Troponin I 0.35 H B-Natriuretic Peptide Total Protein 6.9 Albumin 3.3 L Urine Color Urine Appearance Urine pH Urine Protein Urine Glucose (UA) Urine Ketones Urine Blood Urine Nitrite Urine Bilirubin Urine Urobilinogen Ur Leukocyte Esterase Urine RBC Urine WBC Uric Acid Crystals 06/25/19 06/25/19 06/25/19 06:05 06:05 06:09 WBC RBC Hgb Hct MCV MCH MCHC RDW Plt Count MPV Absolute Neuts (auto) Neutrophils % Lymphocytes % Monocytes % Eosinophils % Basophils % PT with INR 14.00 H INR 1.18 H PTT (Actin FS) 114.0 H Sodium Potassium Chloride Carbon Dioxide Anion Gap BUN Creatinine Est GFR (CKD-EPI)AfAm Est GFR (CKD-EPI)NonAf POC Glucometer 109 Random Glucose Hemoglobin A1c % 5.1 Lactic Acid Calcium Phosphorus Magnesium Total Bilirubin AST ALT Alkaline Phosphatase Creatine Kinase Troponin I B-Natriuretic Peptide Total Protein Albumin Urine Color Urine Appearance Urine pH Urine Protein Urine Glucose (UA) Urine Ketones Urine Blood Urine Nitrite Urine Bilirubin Urine Urobilinogen Ur Leukocyte Esterase Urine RBC Urine WBC Uric Acid Crystals Active Medications Generic Name Dose Route Start Last Admin Trade Name Freq PRN Reason Stop Dose Admin Chlorhexidine Gluconate 1 applic 06/25/19 22:00 Hibiclens For Decolonization - TP HS CHEN Heparin Sodium (Porcine) 1,000 unit 06/24/19 22:41 Heparin - IVPUSH PRN PRN Heparin Heparin Sodium (Porcine) 5,000 unit 06/24/19 22:41 Heparin - IVPUSH PRN PRN Heparin Heparin Sodium (Porcine) 25, 500 mls @ 20 mls/hr 06/24/19 22:45 06/25/19 09: 35 000 unit/ Sodium Chloride IV 0 unit/hr TITR CHEN 0 mls/hr Titration Protocol 1,000 UNIT/HR Mupirocin 1 applic 06/25/19 10:00 06/25/19 10:23 Bactroban Ointment (For Decolonization) - NS 06/30/19 09:59 1 applic BID CHEN Administration ASSESSMENT/PLAN: Patient is an 83yM w no significant PMHx admitted to ICU for submassive saddle PE. Neuro - AOx3, no active issues - Patient is daily alcohol user (2 drinks liquor). Current CIWA of 0. Initiate withdrawal protocol as indicated. Fall precautions. Pulm - submassive PE - CTA chest 06/24: extensive acute pulmonary embolism withing left and right pulmonary arteries, straddling pulmonary artery bifurcation, with apparent right heart strain. Further acute emboli at upper and lower lobar arteries bilaterally - IR thrombectomy and pulmonary angio today - Heparin drip, monitor PTT - Lactic acidosis 3.9 to 1.7 d/t demand on 06/25 - Pending duplex US BLE Cards - submassive PE, hemodnamically stable - baseline tachycardia d/t demand - downtrending trop 0.40 to 0.35 d/t demand - echo 06/25 shows mod-severe dilated RV, RV systolic function severely reduced , elevated RVSP 65, severe pulm HTN, EF 65% - appreciate cards recs GI - started regular diet - CT scan noted numerous liver lesions, concern for malignancy as possible provocative etiology of pulmonary embolism - KIRTI - BUN/Cr 27/1.2 maybe d/t contrast, trending down Endocrine - Hyperglycemia resolved - Normal HbA1c 5.1, BG wnl - d/c insulin sliding scale ID - afebrile, normal WBC, no active issues FEN - no fluids - hyperCl - regular diet PPX - heparin drip - no GI ppx Dispo - ICU Visit type - Emergency Visit Emergency Visit: Yes ED Registration Date: 06/25/19 Care time: The patient presented to the Emergency Department on the above date and was hospitalized for further evaluation of their emergent condition. - New Patient This patient is new to me today: Yes Date on this admission: 06/25/19 - Critical Care Critical Care patient: Yes Total Critical Care Time (in minutes): 37 Critical Care Statement: The care of this patient involved high complexity decision making to prevent further life threatening deterioration of the patient 's condition and/or to evaluate & treat vital organ system(s) failure or risk of failure. ATTENDING PHYSICIAN STATEMENT I saw and evaluated the patient. I reviewed the resident's note and discussed the case with the resident. I agree with the resident's findings and plan as documented. SUBJECTIVE: OBJECTIVE: ASSESSMENT AND PLAN:
--- NOTE | 2019-06-25 11:07 | EKG ---
Test Reason : Blood Pressure : / mmHG Vent. Rate : 137 BPM Atrial Rate : 137 BPM P-R Int : 152 ms QRS Dur : 090 ms QT Int : 312 ms P-R-T Axes : 051 002 038 degrees QTc Int : 471 ms SINUS TACHYCARDIA INFERIOR INFARCT , AGE UNDETERMINED ABNORMAL ECG NO PREVIOUS ECGS AVAILABLE Confirmed by Edilberto Short MD ([id number]) on 06/25/2019 11:06:42 AM Referred By: ISADORA BUCHANAN Confirmed By:Edilberto Short MD
--- NOTE | 2019-06-25 11:16 | PN ---
Teaching Attending Note Name of Resident: Nitesh Regan ATTENDING PHYSICIAN STATEMENT I saw and evaluated the patient. I reviewed the resident's note and discussed the case with the resident. I agree with the resident's findings and plan as documented. SUBJECTIVE: Pt seen and examined in the ICU. Echocardiogram confirming RV dysfunction and dilatation. Pt reports improvement in shortness of breath with oxygen. No chest pain. OBJECTIVE: Vital Signs Period Temp Pulse Resp BP Sys/Koenig Pulse Ox Last 24 Hr 97.3 F-99.8 F 112-139 19-36 118-165/87-116 96-98 Intake & Output 06/22/19 06/23/19 06/24/19 06/25/19 23:59 23:59 23:59 23:59 Intake Total 120 Output Total 1 Balance 119 Weight 82.1 kg 82.1 kg Gen: mildly tachypneic with speaking Heart: tachycardic, regular Lung: decreased breath sounds at the bases Abd: soft, nontender Ext: no edema CBC, BMP 06/25/19 06:00 06/25/19 06:05 Active Medications Chlorhexidine Gluconate (Hibiclens For Decolonization -) 1 applic TP HS CHEN Heparin Sodium (Porcine) (Heparin -) 1,000 unit IVPUSH PRN PRN PRN Reason: Heparin Heparin Sodium (Porcine) (Heparin -) 5,000 unit IVPUSH PRN PRN PRN Reason: Heparin Heparin Sodium (Porcine) 25, (000 unit/ Sodium Chloride) 500 mls @ 20 mls/hr IV TITR CHEN; Protocol Last Titration: 06/25/19 09:35 Dose: 0 unit/hr, 0 mls/hr Mupirocin (Bactroban Ointment (For Decolonization) -) 1 applic NS BID CHEN Stop: 06/30/19 09:59 Last Admin: 06/25/19 10:23 Dose: 1 applic ASSESSMENT AND PLAN: Acute Submassive Pulmonary Emboli Pulmonary HTN/RV Dysfunction +Troponins likely Demand Ischemia Lactic Acidosis Acute Kidney Injury Thrombocytopenia - IR contacted for catheter directed thrombectomy/thrombolysis - continue anticoagulation - O2 to keep SpO2 >90% - LE dopplers - monitor urine output, creatinine - continue ICU monitoring
[2019-06-25] MEDS ORDERED: ALTEPLASE 50MG 25 MG in SODIUM CHLORIDE 250 ML IVPB ONE (12:00)
--- NOTE | 2019-06-25 12:06 | CON.CARD ---
Consult Consult Specialty:: Cardiology Referred by:: Hospitalist Reason for Consultation:: Cardiac evaluation - History of Present Illness Chief Complaint: Shortness of breath and syncope History of Present Illness: Patient is an 83 year old male with no significant PMH who presented initially to [facility] ED with shortness of breath and reports of what appears to be syncopal episode yesterday. He denies chest pain, but ECG revealed sinus tachycardia with S1Q3 pattern and hypoxia requiring oxygen. He was also noted with elevated troponin. CTA chest revealed acute pulmonary embolism both left and right pulmonary arteries. He was started on IV Heparin and [facility]. Echocardiography this AM revealed normal LV systolic function but with dilated RV and reduced function c/ w with RV strain and severe pulmonary HTN. Currently, he was referred for IR thrombectomy and intracatheter TPA. He is awake and alert. He denies chest pain or palpitations. He denies fever or chills. He denies nausea, vomiting, diarrhea or abdominal pain. He denies headache or lightheadedness. - History Source History Provided By: Patient, Medical Record Limitations to Obtaining History: No Limitations - Past Medical History Cardio/Vascular: Yes: Murmur - Past Surgical History Past Surgical History: Yes: Cataract Removal (B/L) - Alcohol/Substance Use Hx Alcohol Use: Yes (3 OUNCES OF GIN DAILY) History of Substance Use: reports: None - Smoking History Smoking history: Former smoker Have you smoked in the past 12 months: No - Social History ADL: Independent Occupation: Musician History of Recent Travel: No Home Medications - Allergies Allergies/Adverse Reactions: Allergies Allergy/AdvReac Type Severity Reaction Status Date / Time No Known Allergies Allergy Verified 06/24/19 19:30 - Home Medications Home Medications: Ambulatory Orders NK [No Known Home Medication] 06/24/19 Family Medical History Other Family History: History of stroke Review of Systems - Review of Systems Constitutional: denies: Chills, Fever Cardiovascular: reports: Palpitations, Shortness of Breath. denies: Chest Pain Respiratory: reports: SOB, SOB on Exertion. denies: Hemoptysis, Orthopnea, PND Gastrointestinal: denies: Abdominal Pain, Constipation, Diarrhea, Melena, Nausea , Rectal Bleeding, Vomiting Musculoskeletal: denies: Back Pain, Joint Pain Neurological: denies: Dizziness, Headache, Seizure, Syncope Vital Signs: Vital Signs Temperature 98.1 F 06/25/19 10:00 Pulse Rate 120 H 06/25/19 11:49 Respiratory Rate 26 H 06/25/19 11:49 Blood Pressure 165/102 H 06/25/19 11:49 O2 Sat by Pulse Oximetry (%) 100 06/25/19 11:49 Eyes: Yes: PERRL HENT: Yes: Atraumatic Neck: Yes: Supple Respiratory: Yes: Diminished Gastrointestinal: Yes: Normal Bowel Sounds, Soft. No: Tenderness Cardiovascular: Yes: Regular Rate and Rhythm, Tachycardia JVD: No PMI: Non-Displaced Heart Sounds: Yes: S1, S2 Murmur: Yes: Systolic Murmur, Grade 1 Edema: No - Other Data Labs, Other Data: CBC, BMP 06/25/19 06:00 06/25/19 06:05 INR, PTT INR 1.18 (0.83-1.09) H 06/25/19 06:05 Troponin, BNP 06/24/19 06/24/19 06/25/19 19:40 20:00 01:15 Troponin I 0.14 H 0.40 H B-Natriuretic Peptide 12038.4 H 06/25/19 06:05 Troponin I 0.35 H B-Natriuretic Peptide Sinus tachycardia with S1Q3 Echo: Report Reviewed Imaging - Results Chest X-ray: Report Reviewed (Moderate hiatal hernia) Cat Scan: Report Reviewed (Chest CTA noted bilateral PTE) EKG: Report Reviewed Problem List - Problems (1) Elevated troponin level Code(s): R79.89 - OTHER SPECIFIED ABNORMAL FINDINGS OF BLOOD CHEMISTRY (2) Lactic acidosis Code(s): E87.2 - ACIDOSIS (3) Pulmonary embolism Code(s): I26.99 - OTHER PULMONARY EMBOLISM WITHOUT ACUTE COR PULMONALE (4) Tachycardia Code(s): R00.0 - TACHYCARDIA, UNSPECIFIED Assessment/Plan 1. Large pulmonary embolism with right heart strain and RV dysfunction 2. Severe pulmonary HTN PLAN: 1. IR thrombectomy this AM 2. Continue Heparin and eventual terminal press operator anticoagulation 3. Echocardiography reviewed 4. Further medical therapy to follow such as beta deon therapy 5. LE Doppler - if DVT, may need IVC filter 6. Trend troponins 7. ICU monitoring Guarded Bar Daniels MD
--- NOTE | 2019-06-25 15:10 | CONSULT ---
Consult Consult Specialty:: Hematology and oncology Reason for Consultation:: Unprovoked PE - History of Present Illness Chief Complaint: SOB History of Present Illness: The patient is an 83 yo m w/ no PMH who was BIBEMS by his after he had a syncopal episode at home. For the past 5 days, the patient endorsed generalized weakness and worsening dyspnea on exertion. A CTA showed bilateral submassive PE 's with right heart strain. He underwent thromolysis with TpA infusion with interventional radiology. Hematology was consulted as the eitology of this PE is unclear. On interview, the patient states his SOB has improved. He denies any history of recent surgery, sedentary lifestyle, recent travel, long plane rides, long drives or blood clots in the past. Patient denies family history of blood clots or cancer. He had a colonoscopy 5 years ago and it was normal. He takes no medications at home. The patient follows regularly with his primary care doctor and was never told of any hematologic abnormalities. - History Source History Provided By: Patient, Medical Record Limitations to Obtaining History: No Limitations - Past Medical History Cardio/Vascular: Yes: Murmur - Past Surgical History Past Surgical History: Yes: Cataract Removal (B/L) - Alcohol/Substance Use Hx Alcohol Use: Yes (3 OUNCES OF GIN DAILY) History of Substance Use: reports: None - Smoking History Smoking history: Former smoker Have you smoked in the past 12 months: No - Social History ADL: Independent Occupation: Musician History of Recent Travel: No Home Medications - Allergies Allergies/Adverse Reactions: Allergies Allergy/AdvReac Type Severity Reaction Status Date / Time No Known Allergies Allergy Verified 06/24/19 19:30 - Home Medications Home Medications: Ambulatory Orders NK [No Known Home Medication] 06/24/19 Physical Exam Vital Signs: Vital Signs Temperature 98.2 F 06/25/19 14:30 Pulse Rate 116 H 06/25/19 14:30 Respiratory Rate 19 06/25/19 14:30 Blood Pressure 145/82 06/25/19 14:30 O2 Sat by Pulse Oximetry (%) 100 06/25/19 13:08 Labs: CBC, BMP 06/25/19 06:00 06/25/19 06:05 Assessment/Plan The patient is an 83 yo m w/ no PMH who was BIBEMS by his after he had a syncopal episode at home. For the past 5 days, the patient endorsed generalized weakness and worsening dyspnea on exertion. A CTA showed bilateral submassive PE 's with right heart strain. He underwent thromolysis with TpA infusion with interventional radiology. Hematology was consulted as the eitology of this PE is unclear. #bilateral massive PE's s/p thrombolysis -patient does not have any overt/classic risk factors for thrombosis -must r/o occult malignancy in this patient -consider CT abdomen and pelvis with contrast once patient stable for non- urgent testing -the patient may require hypercoagulable workup, but he is currently on anticoagulation and this will confound results. Suggest further workup at a later date.
--- NOTE | 2019-06-25 15:31 | PN ---
Teaching Attending Note Name of Resident: Suleman Pérez ATTENDING PHYSICIAN STATEMENT I saw and evaluated the patient. I reviewed the resident's note and discussed the case with the resident. I agree with the resident's findings and plan as documented. SUBJECTIVE: Dyspnea improved. No chest pain/palpitations/SOB OBJECTIVE: Afebrile, Hemodynamically Stable. Still tachycardic. Last Vital Signs Temp Pulse Resp BP Pulse Ox 98.2 F 116 H 19 145/82 100 06/25/19 14:30 06/25/19 14:30 06/25/19 14:30 06/25/19 14:30 06/25/19 13:08 HEENT - Atraumatic, Normocephalic. Heart - S1, S2, RRR Lungs - clear to auscultation Abdomen - Soft, non-tender. Bowel Sounds normal. Extremities - no edema, no calf tenderness. Laboratory Results - last 24 hr 06/24/19 06/24/19 06/24/19 19:40 19:40 19:40 WBC 8.2 RBC 5.17 Hgb 15.5 Hct 46.6 MCV 90.2 MCH 30.0 MCHC 33.3 RDW 13.3 Plt Count 158 MPV 9.8 Absolute Neuts (auto) 6.2 Neutrophils % 74.0 Lymphocytes % 18.8 Monocytes % 6.1 Eosinophils % 0.5 Basophils % 0.6 PT with INR INR PTT (Actin FS) Sodium 138 Potassium 4.4 Chloride 104 Carbon Dioxide 19 L Anion Gap 15 BUN 29.0 H Creatinine 1.4 H Est GFR (CKD-EPI)AfAm 54.22 Est GFR (CKD-EPI)NonAf 46.79 POC Glucometer Random Glucose 237 H Hemoglobin A1c % Lactic Acid Calcium 9.1 Phosphorus Magnesium Total Bilirubin 1.3 H AST 32 ALT 25 Alkaline Phosphatase 77 Creatine Kinase 55 Troponin I 0.14 H B-Natriuretic Peptide Total Protein 7.5 Albumin 3.8 Urine Color Urine Appearance Urine pH Urine Protein Urine Glucose (UA) Urine Ketones Urine Blood Urine Nitrite Urine Bilirubin Urine Urobilinogen Ur Leukocyte Esterase Urine RBC Urine WBC Uric Acid Crystals 06/24/19 06/24/19 06/24/19 20:00 20:00 21:05 WBC RBC Hgb Hct MCV MCH MCHC RDW Plt Count MPV Absolute Neuts (auto) Neutrophils % Lymphocytes % Monocytes % Eosinophils % Basophils % PT with INR INR PTT (Actin FS) Sodium Potassium Chloride Carbon Dioxide Anion Gap BUN Creatinine Est GFR (CKD-EPI)AfAm Est GFR (CKD-EPI)NonAf POC Glucometer Random Glucose Hemoglobin A1c % Lactic Acid 3.9 H* Calcium Phosphorus Magnesium Total Bilirubin AST ALT Alkaline Phosphatase Creatine Kinase Troponin I B-Natriuretic Peptide 57453.4 H Total Protein Albumin Urine Color Yellow Urine Appearance Clear Urine pH 5.5 Urine Protein 2+ H Urine Glucose (UA) Negative Urine Ketones Trace Urine Blood Negative Urine Nitrite Negative Urine Bilirubin 1+ H Urine Urobilinogen 0.2 Ur Leukocyte Esterase Negative Urine RBC 0-2 Urine WBC 0-2 Uric Acid Crystals 1+ 06/24/19 06/25/19 06/25/19 23:15 01:15 01:15 WBC RBC Hgb Hct MCV MCH MCHC RDW Plt Count MPV Absolute Neuts (auto) Neutrophils % Lymphocytes % Monocytes % Eosinophils % Basophils % PT with INR 13.0 INR 1.16 PTT (Actin FS) Sodium Potassium Chloride Carbon Dioxide Anion Gap BUN Creatinine Est GFR (CKD-EPI)AfAm Est GFR (CKD-EPI)NonAf POC Glucometer Random Glucose Hemoglobin A1c % Lactic Acid 2.1 H Calcium Phosphorus Magnesium Total Bilirubin AST ALT Alkaline Phosphatase Creatine Kinase 64 Troponin I 0.40 H B-Natriuretic Peptide Total Protein Albumin Urine Color Urine Appearance Urine pH Urine Protein Urine Glucose (UA) Urine Ketones Urine Blood Urine Nitrite Urine Bilirubin Urine Urobilinogen Ur Leukocyte Esterase Urine RBC Urine WBC Uric Acid Crystals 06/25/19 06/25/19 06/25/19 06:00 06:05 06:05 WBC 5.9 RBC 4.87 Hgb 14.4 Hct 42.8 MCV 87.9 MCH 29.6 MCHC 33.7 RDW 14.2 Plt Count 121 L MPV 9.7 Absolute Neuts (auto) Neutrophils % Lymphocytes % Monocytes % Eosinophils % Basophils % PT with INR INR PTT (Actin FS) Sodium 142 Potassium 4.2 Chloride 110 H Carbon Dioxide 20 L Anion Gap 11 BUN 27.0 H Creatinine 1.2 Est GFR (CKD-EPI)AfAm 65.33 Est GFR (CKD-EPI)NonAf 56.37 POC Glucometer Random Glucose 109 H Hemoglobin A1c % Lactic Acid 1.7 Calcium 8.9 Phosphorus 3.8 Magnesium 2.3 Total Bilirubin 0.8 AST 20 ALT 28 Alkaline Phosphatase 80 Creatine Kinase 66 Troponin I 0.35 H B-Natriuretic Peptide Total Protein 6.9 Albumin 3.3 L Urine Color Urine Appearance Urine pH Urine Protein Urine Glucose (UA) Urine Ketones Urine Blood Urine Nitrite Urine Bilirubin Urine Urobilinogen Ur Leukocyte Esterase Urine RBC Urine WBC Uric Acid Crystals 06/25/19 06/25/19 06/25/19 06:05 06:05 06:09 WBC RBC Hgb Hct MCV MCH MCHC RDW Plt Count MPV Absolute Neuts (auto) Neutrophils % Lymphocytes % Monocytes % Eosinophils % Basophils % PT with INR 14.00 H INR 1.18 H PTT (Actin FS) 114.0 H Sodium Potassium Chloride Carbon Dioxide Anion Gap BUN Creatinine Est GFR (CKD-EPI)AfAm Est GFR (CKD-EPI)NonAf POC Glucometer 109 Random Glucose Hemoglobin A1c % 5.1 Lactic Acid Calcium Phosphorus Magnesium Total Bilirubin AST ALT Alkaline Phosphatase Creatine Kinase Troponin I B-Natriuretic Peptide Total Protein Albumin Urine Color Urine Appearance Urine pH Urine Protein Urine Glucose (UA) Urine Ketones Urine Blood Urine Nitrite Urine Bilirubin Urine Urobilinogen Ur Leukocyte Esterase Urine RBC Urine WBC Uric Acid Crystals Current Medications Generic Name Dose Route Start Last Admin Trade Name Freq PRN Reason Stop Dose Admin Chlorhexidine Gluconate 1 applic 06/25/19 22:00 Hibiclens For Decolonization - TP HS CHEN Heparin Sodium (Porcine) 1,000 unit 06/24/19 22:41 Heparin - IVPUSH PRN PRN Heparin Heparin Sodium (Porcine) 5,000 unit 06/24/19 22:41 Heparin - IVPUSH PRN PRN Heparin Heparin Sodium (Porcine) 25, 500 mls @ 20 mls/hr 06/24/19 22:45 06/25/19 10: 35 000 unit/ Sodium Chloride IV 850 unit/hr TITR CHEN 17 mls/hr Titration Protocol 1,000 UNIT/HR Alteplase, Recombinant 25 mg/ 250 mls @ 10 mls/hr 06/25/19 12:00 06/25/19 13: 40 Sodium Chloride IVPB 06/26/19 12:59 10 mls/hr ONCE ONE Administration 1 MG/HR Mupirocin 1 applic 06/25/19 10:00 06/25/19 10:23 Bactroban Ointment (For Decolonization) - NS 06/30/19 09:59 1 applic BID CHEN Administration Home Medications Medication Instructions Recorded NK [No Known Home Medication] 06/24/19 ASSESSMENT/PLAN: 83 year old male with no significant medical history presented to with dyspnea and reported syncopal episode on the day prior, without preceding CP/ palpitations/lightheadedness. He had ECG showing Sinus tachycardia, Q3T3S1 findings and elevated troponin prompting CTA chest which revealed extensive L and R pulmonary embolism and saddling the main pulmonary artery bifurcation, with R heart strain. He was transferred to [facility] ICU. Echo confirmed dilated RV and reduced systolic function, elevated RV systolic pressure (severe pul HTN) 1. Acute Bilateral/Saddle Pulmonary Embolism R heart strain on CT and Echo with elevated pulmonary artery pressure. Elevated BNP/TropI. Lactic acidosis resolved. IR consulted for Thrombectomy/Thrombolysis Supplemental O2 Currently on heparin drip pending IR consult. Hematology consult for Thrombophilia work-up Monitor respiratory status in ICU 2. Chronic Vertebral Body Fractures: T3, T7-10 - asymptomatic.
[2019-06-25 17:31] LABS: INR 1.12 (0.83-1.09); PROTHROMBIN TIME (PATIENT) 13.2 SEC (9.7-13.0)
--- NOTE | 2019-06-25 17:32 | PN ---
Physical Exam: SUBJECTIVE: Patient seen and examined NAEON. Endorses SOB. Denies CP, palpitations. Denies calf pain OBJECTIVE: Vital Signs Period Temp Pulse Resp BP Sys/Koenig Pulse Ox Last 24 Hr 97.3 F-99.8 F 112-139 15-36 118-165/82-116 96-100 GENERAL: The patient is awake, alert, and fully oriented, in no acute distress. HEAD: Normal with no signs of trauma. Thinning hair on head EYES: sclera anicteric, conjunctiva clear. ENT: oropharynx clear without exudates, moist mucous membranes. NECK: Trachea midline, full range of motion, supple. LUNGS: Breath sounds equal, clear to auscultation bilaterally, no wheezes, no crackles, no accessory muscle use. Tachypnea 3L NC HEART: tachycardia to 110s. S1, S2 without murmur, rub or gallop. ABDOMEN: Soft, nontender, nondistended, normoactive bowel sounds, no guarding, no rebound. EXTREMITIES: 2+ pulses, warm, well-perfused, no edema. NEUROLOGICAL: Normal speech, gait not observed. PSYCH: Normal mood, normal affect. SKIN: Warm, dry, normal turgor, no rashes or lesions noted Laboratory Results - last 24 hr 06/24/19 06/24/19 06/24/19 19:40 19:40 19:40 WBC 8.2 RBC 5.17 Hgb 15.5 Hct 46.6 MCV 90.2 MCH 30.0 MCHC 33.3 RDW 13.3 Plt Count 158 MPV 9.8 Absolute Neuts (auto) 6.2 Neutrophils % 74.0 Lymphocytes % 18.8 Monocytes % 6.1 Eosinophils % 0.5 Basophils % 0.6 PT with INR INR PTT (Actin FS) Sodium 138 Potassium 4.4 Chloride 104 Carbon Dioxide 19 L Anion Gap 15 BUN 29.0 H Creatinine 1.4 H Est GFR (CKD-EPI)AfAm 54.22 Est GFR (CKD-EPI)NonAf 46.79 POC Glucometer Random Glucose 237 H Hemoglobin A1c % Lactic Acid Calcium 9.1 Phosphorus Magnesium Total Bilirubin 1.3 H AST 32 ALT 25 Alkaline Phosphatase 77 Creatine Kinase 55 Troponin I 0.14 H B-Natriuretic Peptide Total Protein 7.5 Albumin 3.8 Urine Color Urine Appearance Urine pH Urine Protein Urine Glucose (UA) Urine Ketones Urine Blood Urine Nitrite Urine Bilirubin Urine Urobilinogen Ur Leukocyte Esterase Urine RBC Urine WBC Uric Acid Crystals 06/24/19 06/24/19 06/24/19 20:00 20:00 21:05 WBC RBC Hgb Hct MCV MCH MCHC RDW Plt Count MPV Absolute Neuts (auto) Neutrophils % Lymphocytes % Monocytes % Eosinophils % Basophils % PT with INR INR PTT (Actin FS) Sodium Potassium Chloride Carbon Dioxide Anion Gap BUN Creatinine Est GFR (CKD-EPI)AfAm Est GFR (CKD-EPI)NonAf POC Glucometer Random Glucose Hemoglobin A1c % Lactic Acid 3.9 H* Calcium Phosphorus Magnesium Total Bilirubin AST ALT Alkaline Phosphatase Creatine Kinase Troponin I B-Natriuretic Peptide 89213.4 H Total Protein Albumin Urine Color Yellow Urine Appearance Clear Urine pH 5.5 Urine Protein 2+ H Urine Glucose (UA) Negative Urine Ketones Trace Urine Blood Negative Urine Nitrite Negative Urine Bilirubin 1+ H Urine Urobilinogen 0.2 Ur Leukocyte Esterase Negative Urine RBC 0-2 Urine WBC 0-2 Uric Acid Crystals 1+ 06/24/19 06/25/19 06/25/19 23:15 01:15 01:15 WBC RBC Hgb Hct MCV MCH MCHC RDW Plt Count MPV Absolute Neuts (auto) Neutrophils % Lymphocytes % Monocytes % Eosinophils % Basophils % PT with INR 13.0 INR 1.16 PTT (Actin FS) Sodium Potassium Chloride Carbon Dioxide Anion Gap BUN Creatinine Est GFR (CKD-EPI)AfAm Est GFR (CKD-EPI)NonAf POC Glucometer Random Glucose Hemoglobin A1c % Lactic Acid 2.1 H Calcium Phosphorus Magnesium Total Bilirubin AST ALT Alkaline Phosphatase Creatine Kinase 64 Troponin I 0.40 H B-Natriuretic Peptide Total Protein Albumin Urine Color Urine Appearance Urine pH Urine Protein Urine Glucose (UA) Urine Ketones Urine Blood Urine Nitrite Urine Bilirubin Urine Urobilinogen Ur Leukocyte Esterase Urine RBC Urine WBC Uric Acid Crystals 06/25/19 06/25/19 06/25/19 06:00 06:05 06:05 WBC 5.9 RBC 4.87 Hgb 14.4 Hct 42.8 MCV 87.9 MCH 29.6 MCHC 33.7 RDW 14.2 Plt Count 121 L MPV 9.7 Absolute Neuts (auto) Neutrophils % Lymphocytes % Monocytes % Eosinophils % Basophils % PT with INR INR PTT (Actin FS) Sodium 142 Potassium 4.2 Chloride 110 H Carbon Dioxide 20 L Anion Gap 11 BUN 27.0 H Creatinine 1.2 Est GFR (CKD-EPI)AfAm 65.33 Est GFR (CKD-EPI)NonAf 56.37 POC Glucometer Random Glucose 109 H Hemoglobin A1c % Lactic Acid 1.7 Calcium 8.9 Phosphorus 3.8 Magnesium 2.3 Total Bilirubin 0.8 AST 20 ALT 28 Alkaline Phosphatase 80 Creatine Kinase 66 Troponin I 0.35 H B-Natriuretic Peptide Total Protein 6.9 Albumin 3.3 L Urine Color Urine Appearance Urine pH Urine Protein Urine Glucose (UA) Urine Ketones Urine Blood Urine Nitrite Urine Bilirubin Urine Urobilinogen Ur Leukocyte Esterase Urine RBC Urine WBC Uric Acid Crystals 06/25/19 06/25/19 06/25/19 06:05 06:05 06:09 WBC RBC Hgb Hct MCV MCH MCHC RDW Plt Count MPV Absolute Neuts (auto) Neutrophils % Lymphocytes % Monocytes % Eosinophils % Basophils % PT with INR 14.00 H INR 1.18 H PTT (Actin FS) 114.0 H Sodium Potassium Chloride Carbon Dioxide Anion Gap BUN Creatinine Est GFR (CKD-EPI)AfAm Est GFR (CKD-EPI)NonAf POC Glucometer 109 Random Glucose Hemoglobin A1c % 5.1 Lactic Acid Calcium Phosphorus Magnesium Total Bilirubin AST ALT Alkaline Phosphatase Creatine Kinase Troponin I B-Natriuretic Peptide Total Protein Albumin Urine Color Urine Appearance Urine pH Urine Protein Urine Glucose (UA) Urine Ketones Urine Blood Urine Nitrite Urine Bilirubin Urine Urobilinogen Ur Leukocyte Esterase Urine RBC Urine WBC Uric Acid Crystals Active Medications Generic Name Dose Route Start Last Admin Trade Name Freq PRN Reason Stop Dose Admin Chlorhexidine Gluconate 1 applic 06/25/19 22:00 Hibiclens For Decolonization - TP HS CHEN Heparin Sodium (Porcine) 1,000 unit 06/24/19 22:41 Heparin - IVPUSH PRN PRN Heparin Heparin Sodium (Porcine) 5,000 unit 06/24/19 22:41 Heparin - IVPUSH PRN PRN Heparin Heparin Sodium (Porcine) 25, 500 mls @ 20 mls/hr 06/24/19 22:45 06/25/19 10: 35 000 unit/ Sodium Chloride IV 850 unit/hr TITR CHEN 17 mls/hr Titration Protocol 1,000 UNIT/HR Alteplase, Recombinant 25 mg/ 250 mls @ 10 mls/hr 06/25/19 12:00 06/25/19 13: 40 Sodium Chloride IVPB 06/26/19 12:59 10 mls/hr ONCE ONE Administration 1 MG/HR Mupirocin 1 applic 06/25/19 10:00 06/25/19 10:23 Bactroban Ointment (For Decolonization) - NS 06/30/19 09:59 1 applic BID CHEN Administration ASSESSMENT/PLAN: 83M w/o significant pmh BIBA after syncope, endorsing SOB x3d. Found to be tachy , tachypnea, requiring supplemental O2. CTA imaging finding Right and Left pulmonary artery emboli with dilated RV suggestive of PE with heart strain. #submassive PE w/ Right heart strain > CTA: Left and Right pulmonary artery, dilated RV w/ reflux w/in hepatic veins and IVC suggestive of Right heart strain > Echo(06/25/19): LVEF 65%, mod-severe dil RV, RV systoliic function mod-severe reduced, RVSP ~65mmHg, severe pulmonary HTN > BNP ~10,393 > troponin 0.14, 0.40, 0.35 - s/p IR procedure - heparin gtt, TPA IVPB - supplemental O2 as needed - fu DVT - heme consult for unprovoked PE: --CT A/P w/ contrast once stable to r/o occult malignancy #KIRTI > Cr 1.4, 1.2 #elevated lactic acid --resolved > 3.9, 2.1, 1.7 FEN: - regular diet Dispo: - ICU admission Visit type - Emergency Visit Emergency Visit: No - New Patient This patient is new to me today: No - Critical Care Critical Care patient: No ATTENDING PHYSICIAN STATEMENT I saw and evaluated the patient. I reviewed the resident's note and discussed the case with the resident. I agree with the resident's findings and plan as documented. SUBJECTIVE: OBJECTIVE: ASSESSMENT AND PLAN:
[2019-06-25 17:34] LABS: ACTIVATED PTT 50.6 SECONDS (25.2-36.5)
[2019-06-25 21:05] LABS: INR 1.12 (0.83-1.09); PROTHROMBIN TIME (PATIENT) 13.2 SEC (9.7-13.0)
--- NOTE | 2019-06-25 21:06 | PN ---
Teaching Attending Note Name of Resident: Salomón Cervnates ATTENDING PHYSICIAN STATEMENT I saw and evaluated the patient. I reviewed the resident's note and discussed the case with the resident. I agree with the resident's findings and plan as documented. ASSESSMENT AND PLAN: 83 yo m w/ no PMH who was BIBEMS by his after he had a syncopal episode at home. For the past 5 days, the patient endorsed generalized weakness and worsening dyspnea on exertion. A CTA showed bilateral submassive PE's with right heart strain. He underwent thromolysis with TpA infusion with interventional radiology. #bilateral massive PE's s/p thrombolysis DVT rt. popliteal vein r/o occult malignancy in this patiennt-- consider CT a/p Consider colonoscopy/prostate cancer screening thrombophilia w/u as outpatient Being switched to DOAC at discharge normal renal/hepatic function and coags at baseline
[2019-06-25] MEDS: CHLORHEXIDINE GLUCONATE 4% CLEANSER FOR DECOLONIZATION TP SCH (22:00)
[2019-06-26] MEDS: HEPARIN - 25,000 UNIT in SODIUM CHLORIDE 495 ML IV SCH (04:44)
[2019-06-26 06:41] LABS: INR 1.15 (0.83-1.09); PROTHROMBIN TIME (PATIENT) 13.6 SEC (9.7-13.0)
[2019-06-26 07:36] LABS: BILIRUBIN,TOTAL 1.2 mg/dL (0.2-1); BLOOD UREA NITROGEN 22.9 mg/dL (7-18); CALCIUM 8.5 mg/dL (8.5-10.1); MAGNESIUM 2.2 mg/dL (1.8-2.4); PHOSPHOROUS 3.8 mg/dL (2.5-4.9); POTASSIUM 3.9 mmol/L (3.5-5.1); TOT PROT 6.3 g/dl (6.4-8.2)
[2019-06-26 08:46] LABS: HEMATOCRIT 40.2 % (35.4-49); HEMOGLOBIN 13.4 GM/dL (11.7-16.9); MCH 29.6 pg (25.7-33.7); MCHC 33.4 g/dl (32.0-35.9); MEAN CELL VOLUME 88.9 fl (80-96); MEAN PLT VOLUME 9.9 fl (7.5-11.1); PLATELET COUNT 93 K/MM3 (134-434); RBC 4.52 M/mm3 (4.00-5.60); RDW 13.9 % (11.9-15.9); WHITE BLOOD COUNT 6.9 K/mm3 (4.0-10.0)
[2019-06-26] MEDS: MUPIROCIN 2% TOPICAL OINTMENT FOR DECOLONIZATION NS SCH ×2 (10:17→21:04)
--- NOTE | 2019-06-26 10:39 | PN ---
Progress Note, Physician History of Present Illness: Chest pain and dyspnea resolving post pulm artery thrombectomy and thrombolysis. - Current Medication List Current Medications: Active Medications Chlorhexidine Gluconate (Hibiclens For Decolonization -) 1 applic TP HS CHEN Last Admin: 06/25/19 22:00 Dose: 1 applic Heparin Sodium (Porcine) (Heparin -) 1,000 unit IVPUSH PRN PRN PRN Reason: Heparin Heparin Sodium (Porcine) (Heparin -) 5,000 unit IVPUSH PRN PRN PRN Reason: Heparin Heparin Sodium (Porcine) 25, (000 unit/ Sodium Chloride) 500 mls @ 20 mls/hr IV TITR CHEN; Protocol Last Admin: 06/26/19 04:44 Dose: 850 unit/hr, 17 mls/hr Alteplase, Recombinant 25 mg/ (Sodium Chloride) 250 mls @ 10 mls/hr IVPB ONCE ONE Stop: 06/26/19 12:59 Last Admin: 06/25/19 13:40 Dose: 10 mls/hr Mupirocin (Bactroban Ointment (For Decolonization) -) 1 applic NS BID CHEN Stop: 06/30/19 09:59 Last Admin: 06/26/19 10:17 Dose: 1 applic - Objective Vital Signs: Vital Signs Temperature 97.8 F 06/26/19 10:00 Pulse Rate 110 H 06/26/19 10:00 Respiratory Rate 25 H 06/26/19 10:00 Blood Pressure 123/72 06/26/19 10:00 O2 Sat by Pulse Oximetry (%) 98 06/26/19 09:00 Constitutional: Yes: No Distress, Calm Neck: Yes: Supple, Other (RIJ catheter in place) Cardiovascular: Yes: Tachycardia Respiratory: Yes: Regular, CTA Bilaterally Gastrointestinal: Yes: Soft, Hypoactive Bowel Sounds Edema: No Labs: CBC, BMP 06/26/19 05:49 06/26/19 05:49 INR, PTT INR 1.15 (0.83-1.09) H 06/26/19 05:15 - ....Imaging EKG: Report Reviewed (ST with RV strain pattern) Problem List - Problems (1) Acute saddle pulmonary embolism with acute cor pulmonale Code(s): I26.02 - SADDLE EMBOLUS OF PULMONARY ARTERY WITH ACUTE COR PULMONALE (2) Demand ischemia Code(s): I24.8 - OTHER FORMS OF ACUTE ISCHEMIC HEART DISEASE (3) Elevated troponin level Code(s): R79.89 - OTHER SPECIFIED ABNORMAL FINDINGS OF BLOOD CHEMISTRY (4) Pulmonary embolism Code(s): I26.99 - OTHER PULMONARY EMBOLISM WITHOUT ACUTE COR PULMONALE Qualifiers: Pulmonary embolism type: saddle Chronicity: acute Acute cor pulmonale presence: with acute cor pulmonale Qualified Code(s): I26.02 - Saddle embolus of pulmonary artery with acute cor pulmonale (5) Tachycardia Code(s): R00.0 - TACHYCARDIA, UNSPECIFIED Assessment/Plan 06/25/2019 Echo: Borderline cLVH with normal LVEF 65%, mod-severely dilated and mod-severely decreased RV fxn, mild TR RVSP 65 mm Hg, tr MR 1. Acute submassive pulmonary embolism with right heart strain and RV dysfunction s/p IR thrombectomy/thrombolysis 2. Severe pulmonary HTN 3. Demand ischemia 4. Right popliteal vein DVT 5. KIRTI improving 6. Thrombocytopenia PLAN: 1. Complete TPA infusion, continue Heparin gtt -> NOAC for 6 months 2. Trend trops to document peak 3. Consideration for IVC filter 4. ICU monitoring, O2 to keep SpO2 >90% 5. Hypercoagulable w/u as outpatient
--- NOTE | 2019-06-26 11:44 | PN ---
Teaching Attending Note Name of Resident: Dylan Philip ATTENDING PHYSICIAN STATEMENT I saw and evaluated the patient. I reviewed the resident's note and discussed the case with the resident. I agree with the resident's findings and plan as documented. SUBJECTIVE: Pt seen and examined in the ICU. tPA infusing. Denies shortness of breath or chest pain. OBJECTIVE: Vital Signs Period Temp Pulse Resp BP Sys/Koenig Pulse Ox Last 24 Hr 97.8 F-98.2 F 103-121 15-35 123-167/70-108 97-100 Intake & Output 06/23/19 06/24/19 06/25/19 06/26/19 23:59 23:59 23:59 23:59 Intake Total 1044 424 Output Total 901 300 Balance 143 124 Weight 82.1 kg 82.1 kg 83.098 kg Gen: NAD at rest Heart: tachycardic, regular Lung: decreased breath sounds at the bases Abd: soft, nontender Ext: no edema CBC, BMP 06/26/19 05:49 06/26/19 05:49 Active Medications Chlorhexidine Gluconate (Hibiclens For Decolonization -) 1 applic TP HS CHEN Last Admin: 06/25/19 22:00 Dose: 1 applic Heparin Sodium (Porcine) (Heparin -) 1,000 unit IVPUSH PRN PRN PRN Reason: Heparin Heparin Sodium (Porcine) (Heparin -) 5,000 unit IVPUSH PRN PRN PRN Reason: Heparin Heparin Sodium (Porcine) 25, (000 unit/ Sodium Chloride) 500 mls @ 20 mls/hr IV TITR CHEN; Protocol Last Admin: 06/26/19 04:44 Dose: 850 unit/hr, 17 mls/hr Alteplase, Recombinant 25 mg/ (Sodium Chloride) 250 mls @ 10 mls/hr IVPB ONCE ONE Stop: 06/26/19 12:59 Last Admin: 06/25/19 13:40 Dose: 10 mls/hr Mupirocin (Bactroban Ointment (For Decolonization) -) 1 applic NS BID CHEN Stop: 06/30/19 09:59 Last Admin: 06/26/19 10:17 Dose: 1 applic ASSESSMENT AND PLAN: Acute Submassive Pulmonary Emboli RLE DVT Pulmonary HTN/RV Dysfunction +Troponins likely Demand Ischemia Lactic Acidosis Acute Kidney Injury Thrombocytopenia - for repeat pulmonary angiogram - continue anticoagulation - O2 to keep SpO2 >90% - monitor urine output, creatinine - continue ICU monitoring
--- NOTE | 2019-06-26 11:47 | PN ---
Physical Exam: SUBJECTIVE: Patient seen and examined at bedside. No complaints overnight. Has has had chest tightness since his thrombectomy procedure yesterday but no complaints of chest pain, palpitations, or sweating. OBJECTIVE: Vital Signs Period Temp Pulse Resp BP Sys/Koenig Pulse Ox Last 24 Hr 97.8 F-98.2 F 103-121 15-35 123-167/70-108 97-100 GENERAL: The patient is awake, alert, and fully oriented, in no acute distress. HEAD: Normal with no signs of trauma. EYES: PERRL, EOMI NECK: Trachea midline, full range of motion, supple. LUNGS: Breath sounds equal, clear to auscultation bilaterally, no wheezes, no crackles, no accessory muscle use. HEART: tachycardic. Regular rhythm. S1, S2 without murmur, rub or gallop. ABDOMEN: Soft, nontender, nondistended, normoactive bowel sounds, no guarding, no rebound, no hepatosplenomegaly, no masses. EXTREMITIES: 2+ pulses, warm, well-perfused, no edema. PSYCH: Normal mood, normal affect. SKIN: Warm, dry, normal turgor, no rashes or lesions noted Laboratory Results - last 24 hr 06/25/19 06/25/19 06/26/19 15:10 20:30 05:15 WBC RBC Hgb Hct MCV MCH MCHC RDW Plt Count MPV PT with INR 13.20 H 13.20 H 13.60 H INR 1.12 H 1.12 H 1.15 H PTT (Actin FS) 50.6 H Sodium Potassium Chloride Carbon Dioxide Anion Gap BUN Creatinine Est GFR (CKD-EPI)AfAm Est GFR (CKD-EPI)NonAf Random Glucose Calcium Phosphorus Magnesium Total Bilirubin AST ALT Alkaline Phosphatase Creatine Kinase Creatine Kinase Index CK-MB (CK-2) Troponin I Total Protein Albumin 06/26/19 06/26/19 06/26/19 05:49 05:49 05:49 WBC 6.9 RBC 4.52 Hgb 13.4 Hct 40.2 MCV 88.9 MCH 29.6 MCHC 33.4 RDW 13.9 Plt Count 93 L D MPV 9.9 PT with INR INR PTT (Actin FS) 50.7 H Sodium 144 Potassium 3.9 Chloride 111 H Carbon Dioxide 23 Anion Gap 11 BUN 22.9 H Creatinine 1.0 Est GFR (CKD-EPI)AfAm 81.45 Est GFR (CKD-EPI)NonAf 70.27 Random Glucose 103 Calcium 8.5 Phosphorus 3.8 Magnesium 2.2 Total Bilirubin 1.2 H AST 50 H ALT 28 Alkaline Phosphatase 70 Creatine Kinase 340 H Creatine Kinase Index 6.2 H CK-MB (CK-2) 21.4 H Troponin I 9.70 H* Total Protein 6.3 L Albumin 3.0 L Active Medications Generic Name Dose Route Start Last Admin Trade Name Freq PRN Reason Stop Dose Admin Chlorhexidine Gluconate 1 applic 06/25/19 22:00 06/25/19 22:00 Hibiclens For Decolonization - TP 1 applic HS CHEN Administration Heparin Sodium (Porcine) 1,000 unit 06/24/19 22:41 Heparin - IVPUSH PRN PRN Heparin Heparin Sodium (Porcine) 5,000 unit 06/24/19 22:41 Heparin - IVPUSH PRN PRN Heparin Heparin Sodium (Porcine) 25, 500 mls @ 20 mls/hr 06/24/19 22:45 06/26/19 04: 44 000 unit/ Sodium Chloride IV 850 unit/hr TITR CHEN 17 mls/hr Administration Protocol 1,000 UNIT/HR Alteplase, Recombinant 25 mg/ 250 mls @ 10 mls/hr 06/25/19 12:00 06/25/19 13: 40 Sodium Chloride IVPB 06/26/19 12:59 10 mls/hr ONCE ONE Administration 1 MG/HR Mupirocin 1 applic 06/25/19 10:00 06/26/19 10:17 Bactroban Ointment (For Decolonization) - NS 06/30/19 09:59 1 applic BID CHEN Administration ASSESSMENT/PLAN: Patient is an 83 y/o/m no significant PMHx admitted to ICU for submassive saddle PE. Patient has received catheter directed thrombectomy by IR. #Neuro - AOx3, no active issues #Pulm - patient admitted to ICU with submassive PE - CTA chest 06/24: extensive acute pulmonary embolism withing left and right pulmonary arteries, straddling pulmonary artery bifurcation, with apparent right heart strain. Further acute emboli at upper and lower lobar arteries bilaterally - IR thrombectomy and pulmonary angio done on 06/25. Will return to IR for repeat angio today - Heparin drip, monitor PTT - Duplex U/S shows Right leg DVT in popliteal vein, no DVT in left leg. #Cards - Patient admitted to ICU with submassive PE, hemodnamically stable - baseline tachycardia d/t demand - patient had an elevated trop of 9.7 this morning. EKG showed ST elevations in leads V5 and V6. Spoke with cardiology, Dr. Maddox, who stated that elevated trop and ST elevations are due to PE. Patient is already on AC, low likelyhood of developing coronary clots. Continue current management. Patient not complaining of chest pain. Monitor with daily trops to peak. - echo 06/25 shows mod-severe dilated RV, RV systolic function severely reduced , elevated RVSP 65, severe pulm HTN, EF 65% - appreciate cards recs #GI - started regular diet - CT scan showed numerous liver lesions, noted to be left hepatic lobe cysts by radiology. # - KIRTI - BUN/Cr 22.29/1.0. Improving. #Endocrine - Hyperglycemia resolved - Normal HbA1c 5.1, BG wnl - d/c insulin sliding scale #FEN - no fluids - regular diet #PPX - heparin drip - no GI ppx #Dispo - continue ICU monitoring - patient to return to IR today for repeat angio Visit type - Emergency Visit Emergency Visit: Yes ED Registration Date: 06/25/19 Care time: The patient presented to the Emergency Department on the above date and was hospitalized for further evaluation of their emergent condition. - New Patient This patient is new to me today: No - Critical Care Critical Care patient: Yes Total Critical Care Time (in minutes): 36 Critical Care Statement: The care of this patient involved high complexity decision making to prevent further life threatening deterioration of the patient 's condition and/or to evaluate & treat vital organ system(s) failure or risk of failure. ATTENDING PHYSICIAN STATEMENT I saw and evaluated the patient. I reviewed the resident's note and discussed the case with the resident. I agree with the resident's findings and plan as documented. SUBJECTIVE: OBJECTIVE: ASSESSMENT AND PLAN:
--- NOTE | 2019-06-26 12:09 | EKG ---
Test Reason : Blood Pressure : / mmHG Vent. Rate : 104 BPM Atrial Rate : 104 BPM P-R Int : 158 ms QRS Dur : 082 ms QT Int : 356 ms P-R-T Axes : 062 006 032 degrees QTc Int : 468 ms SINUS TACHYCARDIA INFERIOR INFARCT (CITED ON OR BEFORE 24-JUN-2019) CANNOT RULE OUT ANTERIOR INFARCT , AGE UNDETERMINED LATERAL INJURY PATTERN ACUTE DC / STEMI ABNORMAL ECG WHEN COMPARED WITH ECG OF 24-JUN-2019 19:41, ST ELEVATION HAS REPLACED ST DEPRESSION IN LATERAL LEADS Confirmed by GISSELLE PARRA, YOANNA ([id number]) on 06/26/2019 12:09:13 PM Referred By: Confirmed By:YOANNA PITTS MD
--- NOTE | 2019-06-26 15:02 | PN ---
Teaching Attending Note Name of Resident: Suleman Pérez ATTENDING PHYSICIAN STATEMENT I saw and evaluated the patient. I reviewed the resident's note and discussed the case with the resident. I agree with the resident's findings and plan as documented. SUBJECTIVE: Dyspnea improved/resolved. No chest pain/palpitations/SOB OBJECTIVE: Afebrile, Hemodynamically Stable. Still tachycardic. Last Vital Signs Temp Pulse Resp BP Pulse Ox 98.0 F 108 H 25 H 142/82 100 06/26/19 14:00 06/26/19 14:00 06/26/19 14:00 06/26/19 14:00 06/26/19 13:44 Heart - S1, S2, mild tachycardia Lungs - clear to auscultation Abdomen - Soft, non-tender. Bowel Sounds normal. Extremities - no edema, no calf tenderness. Laboratory Results - last 24 hr 06/25/19 06/25/19 06/26/19 15:10 20:30 05:15 WBC RBC Hgb Hct MCV MCH MCHC RDW Plt Count MPV PT with INR 13.20 H 13.20 H 13.60 H INR 1.12 H 1.12 H 1.15 H PTT (Actin FS) 50.6 H Sodium Potassium Chloride Carbon Dioxide Anion Gap BUN Creatinine Est GFR (CKD-EPI)AfAm Est GFR (CKD-EPI)NonAf Random Glucose Calcium Phosphorus Magnesium Total Bilirubin AST ALT Alkaline Phosphatase Creatine Kinase Creatine Kinase Index CK-MB (CK-2) Troponin I Total Protein Albumin 06/26/19 06/26/19 06/26/19 05:49 05:49 05:49 WBC 6.9 RBC 4.52 Hgb 13.4 Hct 40.2 MCV 88.9 MCH 29.6 MCHC 33.4 RDW 13.9 Plt Count 93 L D MPV 9.9 PT with INR INR PTT (Actin FS) 50.7 H Sodium 144 Potassium 3.9 Chloride 111 H Carbon Dioxide 23 Anion Gap 11 BUN 22.9 H Creatinine 1.0 Est GFR (CKD-EPI)AfAm 81.45 Est GFR (CKD-EPI)NonAf 70.27 Random Glucose 103 Calcium 8.5 Phosphorus 3.8 Magnesium 2.2 Total Bilirubin 1.2 H AST 50 H ALT 28 Alkaline Phosphatase 70 Creatine Kinase 340 H Creatine Kinase Index 6.2 H CK-MB (CK-2) 21.4 H Troponin I 9.70 H* Total Protein 6.3 L Albumin 3.0 L Current Medications Generic Name Dose Route Start Last Admin Trade Name Freq PRN Reason Stop Dose Admin Chlorhexidine Gluconate 1 applic 06/25/19 22:00 06/25/19 22:00 Hibiclens For Decolonization - TP 1 applic HS CHEN Administration Heparin Sodium (Porcine) 1,000 unit 06/24/19 22:41 Heparin - IVPUSH PRN PRN Heparin Heparin Sodium (Porcine) 5,000 unit 06/24/19 22:41 Heparin - IVPUSH PRN PRN Heparin Heparin Sodium (Porcine) 25, 500 mls @ 20 mls/hr 06/24/19 22:45 06/26/19 04: 44 000 unit/ Sodium Chloride IV 850 unit/hr TITR CHEN 17 mls/hr Administration Protocol 1,000 UNIT/HR Mupirocin 1 applic 06/25/19 10:00 06/26/19 10:17 Bactroban Ointment (For Decolonization) - NS 06/30/19 09:59 1 applic BID CHEN Administration Home Medications Medication Instructions Recorded NK [No Known Home Medication] 06/24/19 ASSESSMENT/PLAN: 83 year old male with no significant medical history presented to [facility] with dyspnea and reported syncopal episode on the day prior, without preceding CP/ palpitations/lightheadedness. He had ECG showing Sinus tachycardia, Q3T3S1 findings and elevated troponin prompting CTA chest which revealed extensive L and R pulmonary embolism and saddling the main pulmonary artery bifurcation, with R heart strain. He was transferred to [facility] ICU. Echo confirmed dilated RV and reduced systolic function, elevated RV systolic pressure (severe pul HTN) 1. Acute Bilateral/Saddle Pulmonary Embolism/ RLE DVT R heart strain on CT and Echo with elevated pulmonary artery pressure. Elevated BNP/TropI. Lactic acidosis resolved. s/p IR guided thrombectomy with catheter directed thrombolysis (ongoing) Supplemental O2 Repeat CT Pulmonary Angiogram today as pr Pulmonary Hematology consult for Thrombophilia work-up including malignancy screening After TPA, can resume Heparin drip with eventual transition to oral anticoagulation. Monitor respiratory and hemodynamic status in ICU 2. Chronic Vertebral Body Fractures: T3, T7-10 - asymptomatic. 3. Thrombocytopenia - sec to consumption due to extensive thrombosis. Will monitor.
--- NOTE | 2019-06-26 17:22 | PN ---
Physical Exam: SUBJECTIVE: Patient seen and examined O/N: received mechanical thrombectomy w/ catheter-directed thrombolysis -Denies chest pain, palpitations, SOB, NAZARIO, dizziness, bloody stools OBJECTIVE: Vital Signs Period Temp Pulse Resp BP Sys/Koenig Pulse Ox Last 24 Hr 97.8 F-98.1 F 103-116 16-28 123-167/70-104 98-100 GENERAL: The patient is awake, alert, and fully oriented, in no acute distress. HEAD: Normal with no signs of trauma. Thinning hair on head EYES: sclera anicteric, conjunctiva clear. ENT: oropharynx clear without exudates, moist mucous membranes. Left IJ in place. TPA running through catheter NECK: Trachea midline, full range of motion, supple. LUNGS: Breath sounds equal, clear to auscultation bilaterally, no wheezes, no crackles, no accessory muscle use. Tachypnea 3L NC HEART: tachycardia to 110s. S1, S2 without murmur, rub or gallop. ABDOMEN: Soft, nontender, nondistended, normoactive bowel sounds, no guarding, no rebound. EXTREMITIES: 2+ pulses, warm, well-perfused, no edema. NEUROLOGICAL: Normal speech, gait not observed. PSYCH: Normal mood, normal affect. SKIN: Warm, dry, normal turgor, no rashes or lesions noted Laboratory Results - last 24 hr 06/25/19 06/25/19 06/26/19 15:10 20:30 05:15 WBC RBC Hgb Hct MCV MCH MCHC RDW Plt Count MPV PT with INR 13.20 H 13.20 H 13.60 H INR 1.12 H 1.12 H 1.15 H PTT (Actin FS) 50.6 H Sodium Potassium Chloride Carbon Dioxide Anion Gap BUN Creatinine Est GFR (CKD-EPI)AfAm Est GFR (CKD-EPI)NonAf Random Glucose Calcium Phosphorus Magnesium Total Bilirubin AST ALT Alkaline Phosphatase Creatine Kinase Creatine Kinase Index CK-MB (CK-2) Troponin I Total Protein Albumin 06/26/19 06/26/19 06/26/19 05:49 05:49 05:49 WBC 6.9 RBC 4.52 Hgb 13.4 Hct 40.2 MCV 88.9 MCH 29.6 MCHC 33.4 RDW 13.9 Plt Count 93 L D MPV 9.9 PT with INR INR PTT (Actin FS) 50.7 H Sodium 144 Potassium 3.9 Chloride 111 H Carbon Dioxide 23 Anion Gap 11 BUN 22.9 H Creatinine 1.0 Est GFR (CKD-EPI)AfAm 81.45 Est GFR (CKD-EPI)NonAf 70.27 Random Glucose 103 Calcium 8.5 Phosphorus 3.8 Magnesium 2.2 Total Bilirubin 1.2 H AST 50 H ALT 28 Alkaline Phosphatase 70 Creatine Kinase 340 H Creatine Kinase Index 6.2 H CK-MB (CK-2) 21.4 H Troponin I 9.70 H* Total Protein 6.3 L Albumin 3.0 L Active Medications Generic Name Dose Route Start Last Admin Trade Name Freq PRN Reason Stop Dose Admin Chlorhexidine Gluconate 1 applic 06/25/19 22:00 06/25/19 22:00 Hibiclens For Decolonization - TP 1 applic HS CHEN Administration Heparin Sodium (Porcine) 1,000 unit 06/24/19 22:41 Heparin - IVPUSH PRN PRN Heparin Heparin Sodium (Porcine) 5,000 unit 06/24/19 22:41 Heparin - IVPUSH PRN PRN Heparin Heparin Sodium (Porcine) 25, 500 mls @ 20 mls/hr 06/24/19 22:45 06/26/19 04: 44 000 unit/ Sodium Chloride IV 850 unit/hr TITR CHEN 17 mls/hr Administration Protocol 1,000 UNIT/HR Mupirocin 1 applic 06/25/19 10:00 06/26/19 10:17 Bactroban Ointment (For Decolonization) - NS 06/30/19 09:59 1 applic BID CHEN Administration ASSESSMENT/PLAN: 83M w/o significant pmh BIBA after syncope, endorsing SOB x3d. Found to be tachy , tachypnea, requiring supplemental O2. CTA imaging finding Right and Left pulmonary artery emboli with dilated RV suggestive of PE with heart strain. #submassive PE w/ Right heart strain > CTA: Left and Right pulmonary artery, dilated RV w/ reflux w/in hepatic veins and IVC suggestive of Right heart strain > Echo(06/25/19): LVEF 65%, mod-severe dil RV, RV systoliic function mod-severe reduced, RVSP ~65mmHg, severe pulmonary HTN > BNP ~10,393 > troponin 0.14, 0.40, 0.35 - s/p IR mechanical thrombectomy w/ catheter-infused TPA - heparin gtt, TPA IVPB - supplemental O2 as needed - fu DVT - heme consult for unprovoked PE: --CT A/P w/ contrast once stable to r/o occult malignancy #tropinemia > 0.14, 0.4, 0.35 --> 9.7 > EKG(06/26/19): possible new ST changes in V5, V6 - Cardio consulted: thought troponinemia likely 2/2 to PE -- cw heparin gtt -- consider IVC -- consider hypercoag w/u as outpt --trend troponins # DVT > BLE duplex: Right popliteal vein thrombus - AC via heparin gtt #KIRTI > Cr 1.4, 1.2 #elevated lactic acid --resolved > 3.9, 2.1, 1.7 FEN: - regular diet Dispo: - ICU admission Visit type - Emergency Visit Emergency Visit: No - New Patient This patient is new to me today: No - Critical Care Critical Care patient: Yes Total Critical Care Time (in minutes): 20 ATTENDING PHYSICIAN STATEMENT I saw and evaluated the patient. I reviewed the resident's note and discussed the case with the resident. I agree with the resident's findings and plan as documented. SUBJECTIVE: OBJECTIVE: ASSESSMENT AND PLAN:
[2019-06-26] MEDS: CHLORHEXIDINE GLUCONATE 4% CLEANSER FOR DECOLONIZATION TP SCH (21:05)
[2019-06-27 06:52] LABS: BASO % 0.5 % (0-2.0); HEMATOCRIT 35.5 % (35.4-49); HEMOGLOBIN 11.9 GM/dL (11.7-16.9); LYMPH % 15.4 % (8-40); MCH 29.7 pg (25.7-33.7); MCHC 33.6 g/dl (32.0-35.9); MEAN CELL VOLUME 88.3 fl (80-96); MEAN PLT VOLUME 9.4 fl (7.5-11.1); MONO % 8.1 % (3.8-10.2); PLATELET COUNT 101 K/MM3 (134-434); RBC 4.03 M/mm3 (4.00-5.60); RDW 14.2 % (11.9-15.9); WHITE BLOOD COUNT 5.2 K/mm3 (4.0-10.0)
[2019-06-27 07:46] LABS: ALBUMIN 2.9 g/dl (3.4-5.0); BILIRUBIN,TOTAL 0.9 mg/dL (0.2-1); BLOOD UREA NITROGEN 21.9 mg/dL (7-18); CALCIUM 8.1 mg/dL (8.5-10.1); MAGNESIUM 2.5 mg/dL (1.8-2.4); PHOSPHOROUS 3.5 mg/dL (2.5-4.9)
--- NOTE | 2019-06-27 09:15 | PN ---
Progress Note, Physician History of Present Illness: Chest pain and dyspnea resolved post pulm artery thrombectomy and thrombolysis. - Current Medication List Current Medications: Active Medications Chlorhexidine Gluconate (Hibiclens For Decolonization -) 1 applic TP HS CHEN Last Admin: 06/26/19 21:05 Dose: 1 applic Heparin Sodium (Porcine) (Heparin -) 1,000 unit IVPUSH PRN PRN PRN Reason: Heparin Heparin Sodium (Porcine) (Heparin -) 5,000 unit IVPUSH PRN PRN PRN Reason: Heparin Heparin Sodium (Porcine) 25, (000 unit/ Sodium Chloride) 500 mls @ 20 mls/hr IV TITR CHEN; Protocol Last Admin: 06/26/19 04:44 Dose: 850 unit/hr, 17 mls/hr Mupirocin (Bactroban Ointment (For Decolonization) -) 1 applic NS BID CHEN Stop: 06/30/19 09:59 Last Admin: 06/26/19 21:04 Dose: 1 applic - Objective Vital Signs: Vital Signs Temperature 98.5 F 06/27/19 06:00 Pulse Rate 96 H 06/27/19 08:00 Respiratory Rate 18 06/27/19 08:00 Blood Pressure 120/71 06/27/19 08:00 O2 Sat by Pulse Oximetry (%) 98 06/26/19 19:44 Constitutional: Yes: No Distress, Calm Neck: Yes: Supple Cardiovascular: Yes: Tachycardia Respiratory: Yes: Regular, CTA Bilaterally, On Nasal O2 Gastrointestinal: Yes: Normal Bowel Sounds, Soft Edema: No Labs: CBC, BMP 06/27/19 05:50 06/27/19 05:50 INR, PTT INR 1.15 (0.83-1.09) H 06/26/19 05:15 - ....Imaging EKG: Report Reviewed (Tele: ST) Problem List - Problems (1) Acute saddle pulmonary embolism with acute cor pulmonale Code(s): I26.02 - SADDLE EMBOLUS OF PULMONARY ARTERY WITH ACUTE COR PULMONALE (2) Demand ischemia Code(s): I24.8 - OTHER FORMS OF ACUTE ISCHEMIC HEART DISEASE (3) Elevated troponin level Code(s): R79.89 - OTHER SPECIFIED ABNORMAL FINDINGS OF BLOOD CHEMISTRY (4) Pulmonary embolism Code(s): I26.99 - OTHER PULMONARY EMBOLISM WITHOUT ACUTE COR PULMONALE Qualifiers: Pulmonary embolism type: saddle Chronicity: acute Acute cor pulmonale presence: with acute cor pulmonale Qualified Code(s): I26.02 - Saddle embolus of pulmonary artery with acute cor pulmonale (5) Tachycardia Code(s): R00.0 - TACHYCARDIA, UNSPECIFIED Assessment/Plan 06/25/2019 Echo: Borderline cLVH with normal LVEF 65%, mod-severely dilated and mod-severely decreased RV fxn, mild TR RVSP 65 mm Hg, tr MR 1. Acute submassive pulmonary embolism with right heart strain and RV dysfunction s/p IR thrombectomy/thrombolysis 2. Severe pulmonary HTN 3. Demand ischemia 4. Right popliteal vein DVT 5. KIRTI improving 6. Thrombocytopenia PLAN: 1. Completed TPA infusion, continue Heparin gtt with therapeutic PTT, plan for repeat pulmonary angiogram then NOAC for 6 months 2. Trops downtrending 3. Consideration for IVC filter 4. ICU monitoring, O2 to keep SpO2 >90%, OOB to chair 5. Hypercoagulable w/u as outpatient
--- NOTE | 2019-06-27 09:17 | PN ---
Physical Exam: SUBJECTIVE: Patient seen and examined. No acute events overnight. Denies chest pain, SOB, gross bleeding. Is vegetarian. OBJECTIVE: Vital Signs Period Temp Pulse Resp BP Sys/Koenig Pulse Ox Last 24 Hr 97.8 F-98.5 F 94-114 18- 112-146/69-90 98-100 GENERAL: The patient is awake, alert, and fully oriented, in no acute distress. LUNGS: Breath sounds equal, clear to auscultation bilaterally, no wheezes, no crackles, no accessory muscle use. HEART: tachycardic. Regular rhythm. S1, S2 without murmur, rub or gallop. ABDOMEN: Soft, nontender, nondistended, normoactive bowel sounds, no guarding, no rebound, no hepatosplenomegaly, no masses. EXTREMITIES: 2+ pulses, warm, well-perfused, no pedal edema. NEURO: AOX3, normal speech Laboratory Results - last 24 hr 06/27/19 06/27/19 05:50 05:50 WBC 5.2 RBC 4.03 Hgb 11.9 Hct 35.5 MCV 88.3 MCH 29.7 MCHC 33.6 RDW 14.2 Plt Count 101 L MPV 9.4 Absolute Neuts (auto) 3.8 Neutrophils % 74.0 Lymphocytes % 15.4 Monocytes % 8.1 Eosinophils % 2.0 Basophils % 0.5 Nucleated RBC % 0 Sodium 143 Potassium 4.0 Chloride 110 H Carbon Dioxide 28 Anion Gap 6 L BUN 21.9 H Creatinine 1.0 Est GFR (CKD-EPI)AfAm 81.45 Est GFR (CKD-EPI)NonAf 70.27 Random Glucose 85 Calcium 8.1 L Phosphorus 3.5 Magnesium 2.5 H Total Bilirubin 0.9 AST 28 ALT 28 Alkaline Phosphatase 68 Creatine Kinase 130 Troponin I 3.66 H* Total Protein 6.0 L Albumin 2.9 L Active Medications Generic Name Dose Route Start Last Admin Trade Name Freq PRN Reason Stop Dose Admin Chlorhexidine Gluconate 1 applic 06/25/19 22:00 06/26/19 21:05 Hibiclens For Decolonization - TP 1 applic HS CHEN Administration Heparin Sodium (Porcine) 1,000 unit 06/24/19 22:41 Heparin - IVPUSH PRN PRN Heparin Heparin Sodium (Porcine) 5,000 unit 06/24/19 22:41 Heparin - IVPUSH PRN PRN Heparin Heparin Sodium (Porcine) 25, 500 mls @ 20 mls/hr 06/24/19 22:45 06/26/19 04: 44 000 unit/ Sodium Chloride IV 850 unit/hr TITR CHEN 17 mls/hr Administration Protocol 1,000 UNIT/HR Mupirocin 1 applic 06/25/19 10:00 06/26/19 21:04 Bactroban Ointment (For Decolonization) - NS 06/30/19 09:59 1 applic BID CHEN Administration ASSESSMENT/PLAN: Patient is an 83 y/o/m no significant PMHx admitted to ICU for submassive saddle PE. Pulm - submassive PE - CTA chest 06/24: extensive acute pulmonary embolism withing left and right pulmonary arteries, straddling pulmonary artery bifurcation, with apparent right heart strain. Further acute emboli at upper and lower lobar arteries bilaterally - Duplex U/S shows Right leg DVT in popliteal vein, no DVT in left leg. - IR thrombectomy and pulmonary angio done 06/25. Repeat angio 06/25, removed introducer, stopped alteplase - stopped heparin drip, started 10 eliquis BID x7d, 5 eliquis BID after - titrated off NC, breathing RA, O2sat wnl Cards - submassive PE, hemodnamically stable - baseline tachycardia d/t demand - downtrending trop 9.7 to 3.6. EKG 06/[address] elevations in leads V5 and V6. Spoke with cardiology, Dr. Maddox 06/26, who stated that elevated trop and ST elevations are due to PE. Patient is already on AC, low risk of new clots, no new intervention, trend trop. Patient denied chest pain/SOB - trending daily trop - echo 06/25 shows mod-severe dilated RV, RV systolic function severely reduced , elevated RVSP 65, severe pulm HTN, EF 65% - appreciate cards recs GI - changed to vegetarian diet - chest CT 06/24 - numerous left hepatic lobe cysts - KIRTI resolved w fluids - BUN/Cr wnl, monitor Heme - anemia - Hgb dropped 13.4 to 11.9. No gross bleeding noted - pending FOBT, trending H&H Endocrine - Hyperglycemia resolved - Normal HbA1c 5.1, normoglycemic, monitor Neuro - AOx3, no active issues ID - afebrile, normal WBC, no active issues FEN - no fluids - hyperCl, hyperMg - vegetarian diet PPX - heparin drip - no GI ppx Dispo - transfer to tele Visit type - Emergency Visit Emergency Visit: Yes ED Registration Date: 06/25/19 Care time: The patient presented to the Emergency Department on the above date and was hospitalized for further evaluation of their emergent condition. - New Patient This patient is new to me today: No - Critical Care Critical Care patient: Yes Total Critical Care Time (in minutes): 36 Critical Care Statement: The care of this patient involved high complexity decision making to prevent further life threatening deterioration of the patient 's condition and/or to evaluate & treat vital organ system(s) failure or risk of failure. ATTENDING PHYSICIAN STATEMENT I saw and evaluated the patient. I reviewed the resident's note and discussed the case with the resident. I agree with the resident's findings and plan as documented. SUBJECTIVE: OBJECTIVE: ASSESSMENT AND PLAN:
[2019-06-27] MEDS: HEPARIN - 25,000 UNIT in SODIUM CHLORIDE 495 ML IV SCH (10:00)
[2019-06-27] MEDS: MUPIROCIN 2% TOPICAL OINTMENT FOR DECOLONIZATION NS SCH (10:22)
--- NOTE | 2019-06-27 11:48 | PN ---
Teaching Attending Note Name of Resident: Nitesh Regan ATTENDING PHYSICIAN STATEMENT I saw and evaluated the patient. I reviewed the resident's note and discussed the case with the resident. I agree with the resident's findings and plan as documented. SUBJECTIVE: Pt seen and examined in the ICU. Catheters/introducer out. Remains on heparin gtt. No shortness of breath or chest pain. No obvious bleeding. OBJECTIVE: Vital Signs Period Temp Pulse Resp BP Sys/Koenig Pulse Ox Last 24 Hr 98 F-98.5 F 94-114 - 112-146/69-90 98-100 Intake & Output 06/24/19 06/25/19 06/26/19 06/27/19 23:59 23:59 23:59 23:59 Intake Total 1044 1168 304 Output Total 901 1050 200 Balance 143 118 104 Weight 82.1 kg 82.1 kg 83.098 kg 83.234 kg Gen: NAD at rest Heart: RRR Lung: decreased breath sounds at the bases Abd: soft, nontender Ext: no edema CBC, BMP 06/27/19 05:50 06/27/19 05:50 Active Medications Apixaban (Eliquis -) 10 mg PO BID [facility] Stop: 07/03/19 22:00 Apixaban (Eliquis -) 5 mg PO BID [facility] Chlorhexidine Gluconate (Hibiclens For Decolonization -) 1 applic TP HS [facility] Last Admin: 06/26/19 21:05 Dose: 1 applic Mupirocin (Bactroban Ointment (For Decolonization) -) 1 applic NS BID [facility] Stop: 06/30/19 09:59 Last Admin: 06/27/19 10:22 Dose: 1 applic ASSESSMENT AND PLAN: Acute Submassive Pulmonary Emboli RLE DVT Pulmonary HTN/RV Dysfunction +Troponins likely Demand Ischemia Lactic Acidosis Acute Kidney Injury Thrombocytopenia - continue anticoagulation - can start Eliquis 10mg BID x 7 days then decrease to 5mg BID - O2 to keep SpO2 >90% - monitor urine output, creatinine - OOB/rehab/PT - can monitor on telemetry
[2019-06-27 14:29] VITALS: BMI 30.4
[2019-06-27] MEDS ORDERED: APIXABAN 5 MG TABLET PO ONE (15:19)
[2019-06-27] MEDS ORDERED: HEPARIN NA (PORCINE) 5,000 UNITS/ML 1ML VIAL IVPUSH PRN ×2 (16:14)
[2019-06-27 17:17] LABS: HEMATOCRIT 36.1 % (35.4-49); HEMOGLOBIN 12.4 GM/dL (11.7-16.9); MCH 30.9 pg (25.7-33.7); MCHC 34.5 g/dl (32.0-35.9); MEAN CELL VOLUME 89.7 fl (80-96); MEAN PLT VOLUME 9.7 fl (7.5-11.1); PLATELET COUNT 129 K/MM3 (134-434); RBC 4.02 M/mm3 (4.00-5.60); RDW 14.1 % (11.9-15.9); WHITE BLOOD COUNT 5.3 K/mm3 (4.0-10.0)
--- NOTE | 2019-06-27 17:19 | PN ---
Physical Exam: SUBJECTIVE: Patient seen and examined NAON. Tele: showing 90-100s. - tolerated IR angio, TPA cath removed yesterday - denies CP, SOB, palpitations OBJECTIVE: Vital Signs Period Temp Pulse Resp BP Sys/Koenig Pulse Ox Last 24 Hr 98 F-98.5 F 94-114 13-31 109-145/69-83 98 GENERAL: The patient is awake, alert, and fully oriented, in no acute distress. HEAD: Normal with no signs of trauma. Thinning hair on head EYES: sclera anicteric, conjunctiva clear. ENT: oropharynx clear without exudates, moist mucous membranes. Gauze over former central line site NECK: Trachea midline, full range of motion, supple. LUNGS: Breath sounds equal, clear to auscultation bilaterally, no wheezes, no crackles, no accessory muscle use. no tachypnea on RA HEART: tachycardia to 100s. S1, S2 without murmur, rub or gallop. ABDOMEN: Soft, nontender, nondistended, normoactive bowel sounds, no guarding, no rebound. EXTREMITIES: 2+ pulses, warm, well-perfused, no edema. NEUROLOGICAL: Normal speech, gait not observed. PSYCH: Normal mood, normal affect. SKIN: Warm, dry, normal turgor, no rashes or lesions noted Laboratory Results - last 24 hr 06/27/19 06/27/19 06/27/19 05:50 05:50 05:50 WBC 5.2 RBC 4.03 Hgb 11.9 Hct 35.5 MCV 88.3 MCH 29.7 MCHC 33.6 RDW 14.2 Plt Count 101 L MPV 9.4 Absolute Neuts (auto) 3.8 Neutrophils % 74.0 Lymphocytes % 15.4 Monocytes % 8.1 Eosinophils % 2.0 Basophils % 0.5 Nucleated RBC % 0 PTT (Actin FS) 46.6 H Sodium 143 Potassium 4.0 Chloride 110 H Carbon Dioxide 28 Anion Gap 6 L BUN 21.9 H Creatinine 1.0 Est GFR (CKD-EPI)AfAm 81.45 Est GFR (CKD-EPI)NonAf 70.27 Random Glucose 85 Calcium 8.1 L Phosphorus 3.5 Magnesium 2.5 H Total Bilirubin 0.9 AST 28 ALT 28 Alkaline Phosphatase 68 Creatine Kinase 130 Troponin I 3.66 H* Total Protein 6.0 L Albumin 2.9 L Active Medications Generic Name Dose Route Start Last Admin Trade Name Freq PRN Reason Stop Dose Admin Apixaban 5 mg 07/04/19 10:00 Eliquis - PO BID [facility] Apixaban 10 mg 06/28/19 10:00 Eliquis - PO 07/03/19 22:00 BID CHEN Heparin Sodium (Porcine) 1,000 unit 06/27/19 16:14 Heparin - IVPUSH PRN PRN Heparin Heparin Sodium (Porcine) 5,000 unit 06/27/19 16:14 Heparin - IVPUSH PRN PRN Heparin ASSESSMENT/PLAN: 83M w/o significant pmh BIBA after syncope, endorsing SOB x3d. Found to be tachy , tachypnea, requiring supplemental O2. CTA imaging finding Right and Left pulmonary artery emboli with dilated RV suggestive of PE with heart strain. #submassive PE w/ Right heart strain > CTA: Left and Right pulmonary artery, dilated RV w/ reflux w/in hepatic veins and IVC suggestive of Right heart strain > Echo(06/25/19): LVEF 65%, mod-severe dil RV, RV systoliic function mod-severe reduced, RVSP ~65mmHg, severe pulmonary HTN > BNP ~10,393 > troponin 0.14, 0.40, 0.35 > DVT study: Right popliteal thrombus - s/p IR mechanical thrombectomy w/ catheter-infused TPA - heparin gtt, TPA IVPB -- completed - Eliquis 10mg BID x5d, then 5mg BID - supplemental O2 as needed - heme consult for unprovoked PE: --CT A/P w/ contrast once stable to r/o occult malignancy #tropinemia > 0.14, 0.4, 0.35 -> 9.7 -->3.7 > EKG(06/26/19): possible new ST changes in V5, V6 - Cardio consulted: thought troponinemia likely 2/2 to PE -- heparin gtt -->Eliquis -- consider IVC -- consider hypercoag w/u as outpt --trend troponins # DVT > BLE duplex: Right popliteal vein thrombus - AC via heparin gtt #KIRTI > Cr 1.4, 1.2 #elevated lactic acid --resolved > 3.9, 2.1, 1.7 FEN: - veg diet Dispo: - ICU --> downgrade Visit type - Emergency Visit Emergency Visit: No - New Patient This patient is new to me today: No - Critical Care Critical Care patient: No ATTENDING PHYSICIAN STATEMENT I saw and evaluated the patient. I reviewed the resident's note and discussed the case with the resident. I agree with the resident's findings and plan as documented. SUBJECTIVE: OBJECTIVE: ASSESSMENT AND PLAN:
--- NOTE | 2019-06-27 17:57 | PN ---
Teaching Attending Note Name of Resident: Suleman Pérez ATTENDING PHYSICIAN STATEMENT I saw and evaluated the patient. I reviewed the resident's note and discussed the case with the resident. I agree with the resident's findings and plan as documented. SUBJECTIVE: Dyspnea improved/resolved. No chest pain/palpitations/SOB OBJECTIVE: Afebrile, Hemodynamically Stable. SpO2 98% RA Last Vital Signs Temp Pulse Resp BP Pulse Ox 98.1 F 108 H 16 133/72 98 06/27/19 14:00 06/27/19 14:00 06/27/19 14:00 06/27/19 14:00 06/26/19 19:44 Heart - S1, S2, mild tachycardia Lungs - clear to auscultation Abdomen - Soft, non-tender. Bowel Sounds normal. Extremities - no edema, no calf tenderness. Laboratory Results - last 24 hr 06/27/19 06/27/19 06/27/19 05:50 05:50 05:50 WBC 5.2 RBC 4.03 Hgb 11.9 Hct 35.5 MCV 88.3 MCH 29.7 MCHC 33.6 RDW 14.2 Plt Count 101 L MPV 9.4 Absolute Neuts (auto) 3.8 Neutrophils % 74.0 Lymphocytes % 15.4 Monocytes % 8.1 Eosinophils % 2.0 Basophils % 0.5 Nucleated RBC % 0 PTT (Actin FS) 46.6 H Sodium 143 Potassium 4.0 Chloride 110 H Carbon Dioxide 28 Anion Gap 6 L BUN 21.9 H Creatinine 1.0 Est GFR (CKD-EPI)AfAm 81.45 Est GFR (CKD-EPI)NonAf 70.27 Random Glucose 85 Calcium 8.1 L Phosphorus 3.5 Magnesium 2.5 H Total Bilirubin 0.9 AST 28 ALT 28 Alkaline Phosphatase 68 Creatine Kinase 130 Troponin I 3.66 H* Total Protein 6.0 L Albumin 2.9 L 06/27/19 16:35 WBC 5.3 RBC 4.02 Hgb 12.4 Hct 36.1 MCV 89.7 MCH 30.9 MCHC 34.5 RDW 14.1 Plt Count 129 L D MPV 9.7 Absolute Neuts (auto) Neutrophils % Lymphocytes % Monocytes % Eosinophils % Basophils % Nucleated RBC % PTT (Actin FS) Sodium Potassium Chloride Carbon Dioxide Anion Gap BUN Creatinine Est GFR (CKD-EPI)AfAm Est GFR (CKD-EPI)NonAf Random Glucose Calcium Phosphorus Magnesium Total Bilirubin AST ALT Alkaline Phosphatase Creatine Kinase Troponin I Total Protein Albumin Current Medications Generic Name Dose Route Start Last Admin Trade Name Freq PRN Reason Stop Dose Admin Apixaban 5 mg 07/04/19 10:00 Eliquis - PO BID CHEN Apixaban 10 mg 06/28/19 10:00 Eliquis - PO 07/03/19 22:00 BID CHEN Heparin Sodium (Porcine) 1,000 unit 06/27/19 16:14 Heparin - IVPUSH PRN PRN Heparin Heparin Sodium (Porcine) 5,000 unit 06/27/19 16:14 Heparin - IVPUSH PRN PRN Heparin Home Medications Medication Instructions Recorded NK [No Known Home Medication] 06/24/19 ASSESSMENT/PLAN: 83 year old male with no significant medical history presented to with dyspnea and reported syncopal episode on the day prior, without preceding CP/ palpitations/lightheadedness. He had ECG showing Sinus tachycardia, Q3T3S1 findings and elevated troponin prompting CTA chest which revealed extensive L and R pulmonary embolism and saddling the main pulmonary artery bifurcation, with R heart strain. He was transferred to [facility] ICU. Echo confirmed dilated RV and reduced systolic function, elevated RV systolic pressure (severe pul HTN) 1. Acute Bilateral/Saddle Pulmonary Embolism/RLE DVT R heart strain on CT and Echo with elevated pulmonary artery pressure. Elevated BNP/TropI. Lactic acidosis resolved. s/p IR guided thrombectomy with catheter directed thrombolysis completed, catheter removed. For transition to Eliquis today - 10mg BID. Hematology consult for Thrombophilia work-up including malignancy screening - to be pursued as out-patient. 2. Chronic Vertebral Body Fractures: T3, T7-10 - asymptomatic. 3. Thrombocytopenia - sec to consumption due to extensive thrombosis. Will monitor.
[2019-06-27] MEDS ORDERED: APIXABAN 5 MG TABLET PO SCH (22:00)
[2019-06-28 09:18] LABS: BILIRUBIN,TOTAL 0.9 mg/dL (0.2-1); BLOOD UREA NITROGEN 18.3 mg/dL (7-18); CALCIUM 7.8 mg/dL (8.5-10.1); CREATININE 1.1 mg/dL (0.55-1.3); MAGNESIUM 2.2 mg/dL (1.8-2.4); PHOSPHOROUS 3.3 mg/dL (2.5-4.9); POTASSIUM 3.6 mmol/L (3.5-5.1); TOT PROT 6.5 g/dl (6.4-8.2)
[2019-06-28] MEDS ORDERED: POTASSIUM CHLORIDE ORAL LIQUID 20 MEQ/15 ML PO ONE (09:56)
[2019-06-28] MEDS ORDERED: APIXABAN 5 MG TABLET PO SCH (10:00)
[2019-06-28 10:56] LABS: HEMATOCRIT 35.7 % (35.4-49); MCH 29.9 pg (25.7-33.7); MCHC 33.5 g/dl (32.0-35.9); MEAN CELL VOLUME 89.2 fl (80-96); MEAN PLT VOLUME 9.8 fl (7.5-11.1); PLATELET COUNT 140 K/MM3 (134-434); RBC 4.01 M/mm3 (4.00-5.60); WHITE BLOOD COUNT 5.3 K/mm3 (4.0-10.0)
--- NOTE | 2019-06-28 11:11 | PN ---
Progress Note, Physician History of Present Illness: Chest pain and dyspnea resolved post pulm artery thrombectomy and thrombolysis. Right posterior knee discomfort and tachycardia also resolved, started on Eliquis. - Current Medication List Current Medications: Active Medications Apixaban (Eliquis -) 5 mg PO BID CHEN Apixaban (Eliquis -) 10 mg PO BID [facility] Stop: 07/03/19 22:00 Last Admin: 06/28/19 09:31 Dose: 10 mg Heparin Sodium (Porcine) (Heparin -) 1,000 unit IVPUSH PRN PRN PRN Reason: Heparin Heparin Sodium (Porcine) (Heparin -) 5,000 unit IVPUSH PRN PRN PRN Reason: Heparin - Objective Vital Signs: Vital Signs Temperature 98 F 06/28/19 06:00 Pulse Rate 92 H 06/28/19 06:00 Respiratory Rate 20 06/28/19 06:00 Blood Pressure 128/89 06/28/19 06:00 O2 Sat by Pulse Oximetry (%) 97 06/27/19 21:00 Constitutional: Yes: No Distress, Calm Neck: Yes: Supple Cardiovascular: Yes: Regular Rate and Rhythm Respiratory: Yes: Regular, CTA Bilaterally Gastrointestinal: Yes: Normal Bowel Sounds, Soft Edema: No Labs: CBC, BMP 06/28/19 06:20 06/28/19 06:20 INR, PTT INR 1.15 (0.83-1.09) H 06/26/19 05:15 - ....Imaging EKG: Report Reviewed (Tele: NSR) Problem List - Problems (1) Acute saddle pulmonary embolism with acute cor pulmonale Code(s): I26.02 - SADDLE EMBOLUS OF PULMONARY ARTERY WITH ACUTE COR PULMONALE (2) Demand ischemia Code(s): I24.8 - OTHER FORMS OF ACUTE ISCHEMIC HEART DISEASE (3) Elevated troponin level Code(s): R79.89 - OTHER SPECIFIED ABNORMAL FINDINGS OF BLOOD CHEMISTRY (4) Pulmonary embolism Code(s): I26.99 - OTHER PULMONARY EMBOLISM WITHOUT ACUTE COR PULMONALE Qualifiers: Pulmonary embolism type: saddle Chronicity: acute Acute cor pulmonale presence: with acute cor pulmonale Qualified Code(s): I26.02 - Saddle embolus of pulmonary artery with acute cor pulmonale (5) Tachycardia Code(s): R00.0 - TACHYCARDIA, UNSPECIFIED Assessment/Plan 06/25/2019 Echo: Borderline cLVH with normal LVEF 65%, mod-severely dilated and mod-severely decreased RV fxn, mild TR RVSP 65 mm Hg, tr MR 1. Acute submassive pulmonary embolism with right heart strain and RV dysfunction s/p IR thrombectomy/thrombolysis 2. Severe pulmonary HTN 3. Demand ischemia 4. Right popliteal vein DVT 5. KIRTI improving 6. Thrombocytopenia PLAN: 1. Started on eliquis 10 bid then 5 bid for 6 months 2. Trops downtrending 3. O2 to keep SpO2 >90%, OOB to chair 4. Hypercoagulable w/u as outpatient 5. F/u echocardiogram to confirm RV recovery as outpatient
--- NOTE | 2019-06-28 11:47 | PN ---
Teaching Attending Note Name of Resident: Suleman Pérez ATTENDING PHYSICIAN STATEMENT I saw and evaluated the patient. I reviewed the resident's note and discussed the case with the resident. I agree with the resident's findings and plan as documented. SUBJECTIVE: Dyspnea improved/resolved. No chest pain/palpitations/SOB OBJECTIVE: Afebrile, Hemodynamically Stable. SpO2 98% RA Last Vital Signs Temp Pulse Resp BP Pulse Ox 98 F 92 H 20 128/89 97 06/28/19 06:00 06/28/19 06:00 06/28/19 09:00 06/28/19 06:00 06/28/19 09:00 Heart - S1, S2, RRR Lungs - clear to auscultation Abdomen - Soft, non-tender. Bowel Sounds normal. Extremities - no edema, no calf tenderness. Laboratory Results - last 24 hr 06/27/19 06/28/19 06/28/19 16:35 06:20 06:20 WBC 5.3 5.3 RBC 4.02 4.01 Hgb 12.4 12.0 Hct 36.1 35.7 MCV 89.7 89.2 MCH 30.9 29.9 MCHC 34.5 33.5 RDW 14.1 14.0 Plt Count 129 L D 140 MPV 9.7 9.8 PTT (Actin FS) 32.7 Sodium Potassium Chloride Carbon Dioxide Anion Gap BUN Creatinine Est GFR (CKD-EPI)AfAm Est GFR (CKD-EPI)NonAf Random Glucose Calcium Phosphorus Magnesium Total Bilirubin AST ALT Alkaline Phosphatase Troponin I Total Protein Albumin 06/28/19 06:20 WBC RBC Hgb Hct MCV MCH MCHC RDW Plt Count MPV PTT (Actin FS) Sodium 140 Potassium 3.6 Chloride 108 H Carbon Dioxide 25 Anion Gap 8 BUN 18.3 H Creatinine 1.1 Est GFR (CKD-EPI)AfAm 72.58 Est GFR (CKD-EPI)NonAf 62.62 Random Glucose 90 Calcium 7.8 L Phosphorus 3.3 Magnesium 2.2 Total Bilirubin 0.9 AST 24 ALT 28 Alkaline Phosphatase 80 Troponin I 1.51 H* Total Protein 6.5 Albumin 3.0 L Current Medications Generic Name Dose Route Start Last Admin Trade Name Freq PRN Reason Stop Dose Admin Apixaban 5 mg 07/04/19 10:00 Eliquis - PO BID CHEN Apixaban 10 mg 06/28/19 10:00 06/28/19 09:31 Eliquis - PO 07/03/19 22:00 10 mg BID CHEN Administration Heparin Sodium (Porcine) 1,000 unit 06/27/19 16:14 Heparin - IVPUSH PRN PRN Heparin Heparin Sodium (Porcine) 5,000 unit 06/27/19 16:14 Heparin - IVPUSH PRN PRN Heparin Home Medications Medication Instructions Recorded NK [No Known Home Medication] 06/24/19 ASSESSMENT/PLAN: 83 year old male with no significant medical history presented to with dyspnea and reported syncopal episode on the day prior, without preceding CP/ palpitations/lightheadedness. He had ECG showing Sinus tachycardia, Q3T3S1 findings and elevated troponin prompting CTA chest which revealed extensive L and R pulmonary embolism and saddling the main pulmonary artery bifurcation, with R heart strain. He was transferred to [facility] ICU. Echo confirmed dilated RV and reduced systolic function, elevated RV systolic pressure (severe pul HTN) 1. Acute Bilateral/Saddle Pulmonary Embolism/RLE DVT R heart strain on CT and Echo with elevated pulmonary artery pressure. Elevated BNP/TropI. Lactic acidosis resolved. s/p IR guided thrombectomy with catheter directed thrombolysis completed, catheter removed. Transitioned to Eliquis 10mg BID for 1 week followed by 5mg BID. Hematology follow up Thrombophilia work-up including malignancy screening - to be pursued as out-patient. Medically optimized for discharge with Pulm and Hematology out-patient follow up. 2. Chronic Vertebral Body Fractures: T3, T7-10 - asymptomatic, stable. 3. Thrombocytopenia - sec to consumption due to extensive thrombosis - resolved.
--- NOTE | 2019-06-28 11:58 | PN ---
Progress Note (short form) - Note Progress Note: PULMONARY OOB TO CHAIR NO SOB/PLEURITIC CP/ VSS/AFEBRILE Gen: NAD at rest Heart: RRR Lung: decreased breath sounds at the bases Abd: soft, nontender Ext: no edema Apixaban (Eliquis -) 10 mg PO BID [facility] Stop: 07/03/19 22:00 Apixaban (Eliquis -) 5 mg PO BID CHEN Chlorhexidine Gluconate (Hibiclens For Decolonization -) 1 applic TP HS [facility] Last Admin: 06/26/19 21:05 Dose: 1 applic Mupirocin (Bactroban Ointment (For Decolonization) -) 1 applic NS BID [facility] Stop: 06/30/19 09:59 Last Admin: 06/27/19 10:22 Dose: 1 applic ASSESSMENT AND PLAN: Acute Submassive Pulmonary Emboli RLE DVT Pulmonary HTN/RV Dysfunction +Troponins likely Demand Ischemia down trending Lactic Acidosis Acute Kidney Injury Thrombocytopenia - continue anticoagulation - Eliquis 10mg BID x 7 days then decrease to 5mg BID - O2 to keep SpO2 >90% - monitor urine output, creatinine - OOB/rehab/PT Betsy WING MD
[2019-06-28 15:42] VITALS: BP 113/59; PULSE 95; TEMP 97.7
--- NOTE | 2019-06-28 16:10 | DS ---
Physical Exam: SUBJECTIVE: Patient seen and examined OBJECTIVE: Vital Signs Period Temp Pulse Resp BP Sys/Koenig Pulse Ox Last 24 Hr 97.7 F-98.9 F 92-108 18-20 110-144/59-89 97-97 PHYSICAL EXAM GENERAL: The patient is awake, alert, and fully oriented, in no acute distress. HEAD: Normal with no signs of trauma. Thinning hair on head EYES: sclera anicteric, conjunctiva clear. ENT: oropharynx clear without exudates, moist mucous membranes. Gauze over former central line site on Right neck NECK: Trachea midline, full range of motion, supple. LUNGS: Breath sounds equal, clear to auscultation bilaterally, no wheezes, no crackles, no accessory muscle use. no tachypnea on RA HEART: nontachycardia to 80-90s. S1, S2 without murmur, rub or gallop. ABDOMEN: Soft, nontender, nondistended, normoactive bowel sounds, no guarding, no rebound. EXTREMITIES: 2+ pulses, warm, well-perfused, no edema. NEUROLOGICAL: Normal speech, gait not observed. PSYCH: Normal mood, normal affect. SKIN: Warm, dry, normal turgor, no rashes or lesions noted LABS Laboratory Results - last 24 hr 06/27/19 06/28/19 06/28/19 16:35 06:20 06:20 WBC 5.3 5.3 RBC 4.02 4.01 Hgb 12.4 12.0 Hct 36.1 35.7 MCV 89.7 89.2 MCH 30.9 29.9 MCHC 34.5 33.5 RDW 14.1 14.0 Plt Count 129 L D 140 MPV 9.7 9.8 PTT (Actin FS) 32.7 Sodium Potassium Chloride Carbon Dioxide Anion Gap BUN Creatinine Est GFR (CKD-EPI)AfAm Est GFR (CKD-EPI)NonAf Random Glucose Calcium Phosphorus Magnesium Total Bilirubin AST ALT Alkaline Phosphatase Troponin I Total Protein Albumin 06/28/19 06:20 WBC RBC Hgb Hct MCV MCH MCHC RDW Plt Count MPV PTT (Actin FS) Sodium 140 Potassium 3.6 Chloride 108 H Carbon Dioxide 25 Anion Gap 8 BUN 18.3 H Creatinine 1.1 Est GFR (CKD-EPI)AfAm 72.58 Est GFR (CKD-EPI)NonAf 62.62 Random Glucose 90 Calcium 7.8 L Phosphorus 3.3 Magnesium 2.2 Total Bilirubin 0.9 AST 24 ALT 28 Alkaline Phosphatase 80 Troponin I 1.51 H* Total Protein 6.5 Albumin 3.0 L HOSPITAL COURSE: 83M w/o significant pmh BIBA after syncope, endorsing SOB x3d. Found to be tachy , tachypnea, requiring supplemental O2. CTA imaging finding Right and Left pulmonary artery emboli with dilated RV suggestive of PE with heart strain. Echo (06/25/19): LVEF 65%, mod-severe dil RV, RV systoliic function mod-severe reduced, RVSP ~65mmHg, severe pulmonary HTN. IR mechanical thrombectomy w/ catheter-directed TPA infusion. POD#1 had repeat pulm angio, with decision to pull central catheter. O2 supplemental needs decreased, transitioned to RA w/o tachycardia or tachypnea. Started on Eliquis. Troponins peaked up to 9.7. Cards consulted and thought it related to PE. Tropnonins trended down to 1.51 prior to discharge. Recommended outpatient repeat echo to eval for Right heart strain. Stable for d/c home Date of Admission:06/25/19 Date of Discharge: 06/28/19 Minutes to complete discharge: 20 Discharge Summary Problems reviewed: Yes Reason For Visit: TACHYCARDIA, ELEVATED TROPONIN LEVEL, TACHYPNEA ON Current Active Problems Acute saddle pulmonary embolism with acute cor pulmonale (Acute) Demand ischemia (Acute) Elevated troponin level (Acute) Lactic acidosis (Acute) NSTEMI (non-ST elevated myocardial infarction) (Acute) Pulmonary embolism (Acute) Tachycardia (Acute) Tachypnea on examination (Acute) Condition: Stable - Instructions Diet, Activity, Other Instructions: You were evaluated in the hospital for shortness of breath. Imaging showed that you had clots in your lungs, and your Right leg. A procedure was performed to remove and dissolve your clot. A research advisor evaluated you due to heart strain from the clot. Your symptoms improved and follow-up imaging showed improvement of the lung clots. Medications: --NEW medications: Eliquis ---take Eliquis 10mg twice a day for 6 more days starting tonight (until 07/03/19) ---take Eliquis 5mg twice a day, from 07/04/19 onwards Follow-up with the physicians below in 1-2weeks: - Primary care doctor(your own PCP, or Dr Sullivan): to discuss your recent hospitalization - Heavy Equipment Mechanic(Dr Maddox --[phone]): for follow-up echocardiogram - Equipment Maintenance Supervisor(Dr Burgess): for follow-up on imaging and labwork that can explain the cause of your blood clot formation - Pulmonology (Dr. Knight) Additional instructions: - diet: heart healthy diet(low salt, low sugar, high fiber) - activity: normal activity as tolerated Please seek immediate medical evaluation or go to the Emergency Department if you experience: - shortness of breath, trouble breathing, chest pain, palpitations - bloody bowel movements Referrals: Zac Knight MD [Staff Physician] - 1 Week (pulmonary embolism) Nelda Burgess MD [Staff Physician] - 2 Weeks (acute bilateral/saddle pulmonary embolism) Lyle Maddox MD [Staff Physician] - 2 Weeks (saddle PE with RV strain, repeat echo, Follow up RV function) Andrey Sullivan MD [Staff Physician] - 1 Week Disposition: HOME - Home Medications Comprehensive Discharge Medication List: Ambulatory Orders Apixaban [Eliquis -] 5 mg PO BID #60 tablet 06/28/19 Apixaban [Eliquis] 10 mg PO BID #24 tablet 06/28/19 This patient is new to me today: No Emergency Visit: No Critical Care patient: No - Discharge Referral Referred to [facility] Med [facility] No ATTENDING PHYSICIAN STATEMENT I saw and evaluated the patient. I reviewed the resident's note and discussed the case with the resident. I agree with the resident's findings and plan as documented. SUBJECTIVE: OBJECTIVE: ASSESSMENT AND PLAN:
[2019-07-02] MEDS ORDERED: APIXABAN 5 MG TABLET PO SCH (22:00)
[2019-07-04] MEDS ORDERED: APIXABAN 5 MG TABLET PO SCH (10:00)
== END 2019-06-28 17:26 | disposition home or self-care (01) | DRG 164 ==
LOC: FER 19:20 → JICU 06-25 01:09 → J4W 06-27 15:58
PROVIDERS: ADMIT Internal Medicine
PROC: 02CP3ZZ Extirpation of Matter from Pulmonary Trunk, Percutaneous Approach (ICD-10-PCS; principal; 2019-06-26)
PROC: 3E07317 Introduction of Other Thrombolytic into Coronary Artery, Percutaneous Approach (ICD-10-PCS; 2019-06-26)
DX: I26.92 Saddle embolus of pulmonary artery without acute cor pulmonale (principal); I82.401 Acute embolism and thrombosis of unspecified deep veins of right lower extremity; N17.9 Acute kidney failure, unspecified; I24.8 Other forms of acute ischemic heart disease; E87.2 Acidosis; I27.20 Pulmonary hypertension, unspecified; R00.0 Tachycardia, unspecified; D69.6 Thrombocytopenia, unspecified; R55 Syncope and collapse
CPT/HCPCS: 36415; 37187; 37212; 71045-TC-FY; 71275-TC; 75746-TC-FY; 76000-TC-FY; 76937-TC; 80053; 81003; 81015; 82550; 82553; 82962; 83036; 83605; 83735; 83880; 84100; 84484; 85025; 85027; 85610; 85730; 87040; 93005; 93010; 93306-TC; 93970-TC; 97116-GP; 97161-GP; 99285-25; C1769; C1894; C9999; J1644; J2997; J7030

== ENCOUNTER 2022-01-11 08:36 | Day surgery (SDC) | payer OTHER ==
[2021-12-21 14:21] VITALS: BMI 26.6
[2022-01-11] MEDS ORDERED: CELECOXIB 200 MG CAPSULE ONE (09:26)
[2022-01-11] MEDS ORDERED: CELECOXIB 200 MG CAPSULE PO ONE ×2 (10:00→10:45)
[2022-01-11] MEDS ORDERED: MIDAZOLAM HCL 2 MG/2 ML SINGLE DOSE VIAL ONE (10:20)
[2022-01-11] MEDS ORDERED: BUPIVACAINE HCL/PF 0.5% (5 MG/ML) 30 ML VIAL IJ ONE (10:20)
[2022-01-11] MEDS ORDERED: BUPIVACAINE LIPOSOME/PF (EXPAREL) 266 MG/20 ML VIAL ONE (10:20)
[2022-01-11] MEDS ORDERED: TRANEXAMIC ACID 1000 MG/10 ML VIAL IVPUSH ONE (10:45)
[2022-01-11] MEDS ORDERED: CEFAZOLIN 2 GM in DEXTROSE 5%-WATER - 50 ML IVPB ONE (10:45)
[2022-01-11] MEDS ORDERED: ceFAZolin SODIUM 1 GM VIAL ONE ×2 (10:49→20:58)
[2022-01-11] MEDS ORDERED: VANCOMYCIN 1,000 MG VIAL (RESTRICTED TO ID ONLY) ONE (10:49)
[2022-01-11] MEDS ORDERED: BUPIVACAINE HCL 50 ML ONE (11:03)
[2022-01-11] MEDS ORDERED: PROPOFOL 20 ML ONE ×2 (11:04)
[2022-01-11] MEDS ORDERED: ONDANSETRON 4 MG/2 ML VIAL IVPUSH PRN ×2 (13:11→13:31)
[2022-01-11] MEDS ORDERED: MAG HYDROX/AL HYDROX/SIMETH 30 ML UNIT-DOSE CUP PO PRN (13:11)
[2022-01-11] MEDS ORDERED: LACTATED RINGERS SOLUTION 1,000 ML IV SCH ×2 (13:15→13:45)
[2022-01-11] MEDS ORDERED: ACETAMINOPHEN INJECTION 100 ML IVPB ONE (13:24)
[2022-01-11] MEDS ORDERED: oxyCODONE HCL 5 MG TABLET PO PRN ×2 (13:31)
[2022-01-11] MEDS ORDERED: ACETAMINOPHEN 1000 MG/100 ML BAG IVPB ONE (13:31)
[2022-01-11] MEDS: KETOROLAC TROMETHAMINE 30 MG/1 ML VIAL IVPUSH SCH ×2 (16:15→21:17)
[2022-01-11] MEDS ORDERED: DEXTROSE 5%-WATER - 50 ML IVPB ONE (20:58)
[2022-01-11] MEDS: CEFAZOLIN 2 GM in DEXTROSE 5%-WATER - 50 ML IVPB SCH (21:18)
[2022-01-11] MEDS: ACETAMINOPHEN 500 MG TABLET (FP) PO SCH (21:18)
[2022-01-11] MEDS: oxyCODONE HCL 10 MG SUSTAINED ACTING TABLET PO SCH (21:19)
[2022-01-11] MEDS: SENNOSIDES/DOCUSATE COMBO (SENNA PLUS) TABLET (UD) PO SCH (21:20)
[2022-01-12] MEDS: ACETAMINOPHEN 500 MG TABLET (FP) PO SCH ×3 (03:31→14:12)
[2022-01-12] MEDS ORDERED: DEXTROSE 5%-WATER - 50 ML IVPB ONE (05:27)
[2022-01-12] MEDS ORDERED: ceFAZolin SODIUM 1 GM VIAL ONE (05:27)
[2022-01-12] MEDS: CEFAZOLIN 2 GM in DEXTROSE 5%-WATER - 50 ML IVPB SCH (05:31)
[2022-01-12 08:34] LABS: HEMATOCRIT 34.8 % (35.4-49); HEMOGLOBIN 12.3 G/dL (11.7-16.9); MCH 31.5 pg (25.7-33.7); MCHC 35.2 g/dl (32.0-35.9); MEAN CELL VOLUME 89.4 fl (80-96); MEAN PLT VOLUME 9.2 fl (7.5-11.1); PLATELET COUNT 133.8 10^3/uL (134-434); RBC 3.89 10^6/uL (4.00-5.60); RDW 14.7 % (11.9-15.9); WHITE BLOOD COUNT 6.6 10^3/uL (4.0-10.8)
[2022-01-12] MEDS: SENNOSIDES/DOCUSATE COMBO (SENNA PLUS) TABLET (UD) PO SCH (09:31)
[2022-01-12] MEDS: oxyCODONE HCL 10 MG SUSTAINED ACTING TABLET PO SCH (09:33)
[2022-01-12] MEDS ORDERED: MULTIVITAMINS (DAILY MVI) TABLET (FP) PO SCH (10:00)
[2022-01-12] MEDS ORDERED: PANTOPRAZOLE 40 MG TABLET PO SCH (10:00)
[2022-01-12 13:45] VITALS: PULSE 89
[2022-01-12 14:10] VITALS: BP 127/64; TEMP 97.4
[2022-01-12] MEDS ORDERED: APIXABAN 2.5 MG TABLET PO SCH (22:00)
== END 2022-01-12 16:18 | disposition home health service (06) ==
LOC: FASUSAT 08:36 → FM/S 15:09 → FASUSAT 01-12 16:18
PROVIDERS: ATTEND Orthopaedic Surgery
PROC: 8E0YXBZ Computer Assisted Procedure of Lower Extremity (ICD-10-PCS; 2022-01-11)
PROC: 8E0Y0CZ Robotic Assisted Procedure of Lower Extremity, Open Approach (ICD-10-PCS; 2022-01-11)
PROC: 0SRD0J9 Replacement of Left Knee Joint with Synthetic Substitute, Cemented, Open Approach (ICD-10-PCS; principal; 2022-01-11 11:54)
DX: M17.12 Unilateral primary osteoarthritis, left knee (principal); I26.99 Other pulmonary embolism without acute cor pulmonale; R01.1 Cardiac murmur, unspecified; Z87.891 Personal history of nicotine dependence
CPT/HCPCS: 20985; 27447; C1776; S2900; 36415; 73560-TC-LT-FY; 85027; 94760; 97010-GP; 97116-GP; 97161-GP

== ENCOUNTER 2022-03-08 09:59 | Day surgery (SDC) | payer OTHER ==
[2022-03-03 13:26] VITALS: BMI 27.4
[~2022-03-08 09:59] MED LIST: VANCOMYCIN 1,000 MG VIAL (RESTRICTED TO ID ONLY) IVPB ONE
[2022-03-08] MEDS ORDERED: CELECOXIB 200 MG CAPSULE ONE (10:40)
[2022-03-08] MEDS ORDERED: ceFAZolin SODIUM 1 GM VIAL ONE ×2 (11:54→13:59)
[2022-03-08] MEDS ORDERED: VANCOMYCIN 1,000 MG VIAL (RESTRICTED TO ID ONLY) ONE (11:54)
[2022-03-08] MEDS ORDERED: BUPIVACAINE LIPOSOME/PF (EXPAREL) 266 MG/20 ML VIAL ONE (12:19)
[2022-03-08] MEDS ORDERED: FENTANYL CITRATE/PF 50 MCG/ML VIAL ONE (12:19)
[2022-03-08] MEDS ORDERED: MIDAZOLAM HCL 2 MG/2 ML SINGLE DOSE VIAL ONE ×2 (12:19→15:08)
[2022-03-08] MEDS ORDERED: BUPIVACAINE HCL/PF 0.5% (5MG/ML) 10 ML VIAL ONE (12:20)
[2022-03-08] MEDS ORDERED: TRANEXAMIC ACID 1000 MG/10 ML VIAL IVPUSH ONE (12:45)
[2022-03-08] MEDS ORDERED: CEFAZOLIN 2 GM in DEXTROSE 5%-WATER - 50 ML IVPB ONE (12:45)
[2022-03-08] MEDS ORDERED: CELECOXIB 200 MG CAPSULE PO ONE (12:45)
[2022-03-08] MEDS ORDERED: ONDANSETRON 4 MG/2 ML VIAL IVPUSH PRN (13:54)
[2022-03-08] MEDS ORDERED: MAG HYDROX/AL HYDROX/SIMETH 30 ML UNIT-DOSE CUP PO PRN (13:54)
[2022-03-08] MEDS ORDERED: TRANEXAMIC ACID 1000 MG/10 ML VIAL ONE (13:59)
[2022-03-08] MEDS ORDERED: PROPOFOL 20 ML ONE ×2 (13:59→14:45)
[2022-03-08] MEDS ORDERED: LACTATED RINGERS SOLUTION 1,000 ML IV SCH ×2 (14:00→16:30)
[2022-03-08] MEDS ORDERED: VANCOMYCIN 1,000 MG VIAL (RESTRICTED TO ID ONLY) IVPB ONE (15:37)
[2022-03-08] MEDS ORDERED: ACETAMINOPHEN 1000 MG/100 ML BAG IVPB ONE (16:23)
[2022-03-08] MEDS ORDERED: ACETAMINOPHEN INJECTION 100 ML IVPB ONE (16:29)
[2022-03-08] MEDS ORDERED: CEFAZOLIN SODIUM 2 GM VIAL ONE (21:01)
[2022-03-08] MEDS ORDERED: DEXTROSE 5%-WATER 100 ML IVPB ONE (21:01)
[2022-03-08] MEDS: SENNOSIDES/DOCUSATE COMBO (SENNA PLUS) TABLET (UD) PO SCH (21:21)
[2022-03-08] MEDS: oxyCODONE HCL 10 MG SUSTAINED ACTING TABLET PO SCH (21:22)
[2022-03-08] MEDS: CEFAZOLIN SODIUM 2 GM in DEXTROSE 5%-WATER 100 ML IVPB SCH (21:23)
[2022-03-08] MEDS: ACETAMINOPHEN 500 MG TABLET (FP) PO SCH (21:31)
[2022-03-09] MEDS: oxyCODONE HCL 5 MG TABLET PO PRN ×2 (00:27→05:46)
[2022-03-09] MEDS ORDERED: DEXTROSE 5%-WATER 100 ML IVPB ONE (05:16)
[2022-03-09] MEDS ORDERED: CEFAZOLIN SODIUM 2 GM VIAL ONE (05:16)
[2022-03-09] MEDS: CEFAZOLIN SODIUM 2 GM in DEXTROSE 5%-WATER 100 ML IVPB SCH (05:45)
[2022-03-09] MEDS: ACETAMINOPHEN 500 MG TABLET (FP) PO SCH ×2 (05:46→11:39)
[2022-03-09 08:25] LABS: HEMOGLOBIN 12.7 G/dL (11.7-16.9); MCH 30.4 pg (25.7-33.7); MCHC 34.4 g/dl (32.0-35.9); MEAN CELL VOLUME 88.4 fl (80-96); MEAN PLT VOLUME 9.2 fl (7.5-11.1); PLATELET COUNT 164.2 10^3/uL (134-434); RBC 4.18 10^6/uL (4.00-5.60); RDW 14.7 % (11.9-15.9); WHITE BLOOD COUNT 5.4 10^3/uL (4.0-10.8)
[2022-03-09] MEDS: SENNOSIDES/DOCUSATE COMBO (SENNA PLUS) TABLET (UD) PO SCH (09:09)
[2022-03-09] MEDS: oxyCODONE HCL 10 MG SUSTAINED ACTING TABLET PO SCH (09:10)
[2022-03-09 09:17] VITALS: BP 142/56; PULSE 96; TEMP 97.7
[2022-03-09] MEDS ORDERED: APIXABAN 2.5 MG TABLET PO SCH (10:00)
[2022-03-09] MEDS ORDERED: MULTIVITAMINS (DAILY MVI) TABLET (FP) PO SCH (10:00)
[2022-03-09] MEDS ORDERED: PANTOPRAZOLE 40 MG TABLET PO SCH (10:00)
== END 2022-03-09 13:21 | disposition home health service (06) ==
LOC: FASUSAT 09:59 → FM/S 17:03 → FASUSAT 03-09 13:21
PROVIDERS: ATTEND Orthopaedic Surgery
PROC: 8E0YXBZ Computer Assisted Procedure of Lower Extremity (ICD-10-PCS; 2022-03-08)
PROC: 8E0Y0CZ Robotic Assisted Procedure of Lower Extremity, Open Approach (ICD-10-PCS; 2022-03-08)
PROC: 0SRC0JA Replacement of Right Knee Joint with Synthetic Substitute, Uncemented, Open Approach (ICD-10-PCS; principal; 2022-03-08 14:12)
DX: M17.11 Unilateral primary osteoarthritis, right knee (principal); R01.1 Cardiac murmur, unspecified; Z86.711 Personal history of pulmonary embolism
CPT/HCPCS: 20985; 27447; C1776; S2900; 36415; 73560-TC-RT-FY; 73700-TC-RT; 85027; 94760; 97010-GP; 97116-GP; 97161-GP

== ENCOUNTER 2022-05-10 10:11 | Day surgery (SDC) | payer OTHER ==
[2022-05-05 17:46] VITALS: BMI 26.6
[2022-05-10] MEDS: CELECOXIB 200 MG CAPSULE PO ONE ×2 (07:30→15:07)
[~2022-05-10 10:11] MED LIST changes: +BUPIVACAINE HCL 50 ML ONE; +BUPIVACAINE HCL/PF 0.5% (5 MG/ML) 30 ML VIAL IJ ONE; +BUPIVACAINE LIPOSOME/PF (EXPAREL) 266 MG/20 ML VIAL ONE; +CEFAZOLIN 2 GM in DEXTROSE 5%-WATER - 50 ML IVPB ONE; +DEXAMETHASONE SOD PHOSPHATE 4 MG/1 ML VIAL ONE; +KETOROLAC TROMETHAMINE 30 MG/1 ML VIAL ONE; +LACTATED RINGERS SOLUTION 1,000 ML IV SCH; +MIDAZOLAM HCL 2 MG/2 ML SINGLE DOSE VIAL ONE; +ONDANSETRON 4 MG/2 ML VIAL IVPUSH PRN; +ONDANSETRON 4 MG/2 ML VIAL ONE; +PROPOFOL 40 ML ONE; +TRANEXAMIC ACID 1000 MG/10 ML VIAL IVPUSH ONE; +TRANEXAMIC ACID 1000 MG/10 ML VIAL ONE; -VANCOMYCIN 1,000 MG VIAL (RESTRICTED TO ID ONLY) IVPB ONE; +VANCOMYCIN 1,000 MG VIAL (RESTRICTED TO ID ONLY) ONE; +ceFAZolin SODIUM 1 GM VIAL ONE
[2022-05-10] MEDS ORDERED: oxyCODONE HCL 5 MG TABLET PO PRN (10:38)
[2022-05-10] MEDS ORDERED: ONDANSETRON 4 MG/2 ML VIAL IVPUSH PRN (10:38)
[2022-05-10] MEDS ORDERED: LACTATED RINGERS SOLUTION 1,000 ML IV SCH (10:45)
[2022-05-10] MEDS ORDERED: ACETAMINOPHEN INJECTION 100 ML IVPB ONE (10:49)
[2022-05-10] MEDS: ACETAMINOPHEN 1000 MG/100 ML BAG IVPB ONE ×2 (10:57→18:19)
[2022-05-10] MEDS: PANTOPRAZOLE 40 MG TABLET PO SCH (12:17)
[2022-05-10] MEDS: MULTIVITAMINS (DAILY MVI) TABLET (FP) PO SCH (12:17)
[2022-05-10] MEDS: KETOROLAC TROMETHAMINE 30 MG/1 ML VIAL IVPUSH SCH ×2 (12:17→16:38)
[2022-05-10] MEDS: CEFAZOLIN SODIUM 2 GM in DEXTROSE 5%-WATER 100 ML IVPB SCH ×2 (16:37→23:48)
[2022-05-10] MEDS: ACETAMINOPHEN 500 MG TABLET (FP) PO SCH ×2 (18:17→23:48)
[2022-05-10] MEDS: oxyCODONE HCL 5 MG TABLET PO PRN (19:34)
[2022-05-10 20:34] VITALS: RESP 18
[2022-05-10] MEDS: SENNOSIDES/DOCUSATE COMBO (SENNA PLUS) TABLET (UD) PO SCH (22:29)
[2022-05-10] MEDS: oxyCODONE HCL 10 MG SUSTAINED ACTING TABLET PO SCH (22:29)
[2022-05-11] MEDS: ACETAMINOPHEN 500 MG TABLET (FP) PO SCH ×2 (05:57→12:05)
[2022-05-11] MEDS: oxyCODONE HCL 5 MG TABLET PO PRN (05:57)
[2022-05-11 08:15] LABS: HEMATOCRIT 30.2 % (35.4-49); HEMOGLOBIN 10.7 G/dL (11.7-16.9); MCH 29.9 pg (25.7-33.7); MCHC 35.5 g/dl (32.0-35.9); MEAN CELL VOLUME 84.4 fl (80-96); MEAN PLT VOLUME 8.9 fl (7.5-11.1); PLATELET COUNT 162.5 10^3/uL (134-434); RBC 3.58 10^6/uL (4.00-5.60); RDW 15.8 % (11.9-15.9); WHITE BLOOD COUNT 5.9 10^3/uL (4.0-10.8)
[2022-05-11] MEDS: PANTOPRAZOLE 40 MG TABLET PO SCH (09:06)
[2022-05-11] MEDS: SENNOSIDES/DOCUSATE COMBO (SENNA PLUS) TABLET (UD) PO SCH (09:06)
[2022-05-11] MEDS: oxyCODONE HCL 10 MG SUSTAINED ACTING TABLET PO SCH (09:08)
[2022-05-11] MEDS: MULTIVITAMINS (DAILY MVI) TABLET (FP) PO SCH (09:08)
[2022-05-11 09:22] VITALS: BP 122/47; PULSE 93; TEMP 97.8
[2022-05-11] MEDS ORDERED: APIXABAN 2.5 MG TABLET PO SCH (10:00)
== END 2022-05-11 13:03 | disposition home or self-care (01) ==
LOC: FASUSAT 10:11 → EDSTATUS 11:00 → FM/S 12:04 → FASUSAT 13:03
PROVIDERS: ATTEND Orthopaedic Surgery
PROC: 0SRD0J9 Replacement of Left Knee Joint with Synthetic Substitute, Cemented, Open Approach (ICD-10-PCS; 2022-05-10)
PROC: 0SPD0JZ Removal of Synthetic Substitute from Left Knee Joint, Open Approach (ICD-10-PCS; principal; 2022-05-10 08:32)
DX: M22.02 Recurrent dislocation of patella, left knee (principal); Z96.652 Presence of left artificial knee joint
CPT/HCPCS: 36415; 73560-TC-LT-FY; 85027; 94760; 97010-GP; 97116-GP; 97162-GP; C1776; C1889